=== PATIENT | female | born 1970 | race Caucasian/White ===

== ENCOUNTER 2022-10-09 09:54 | Observation (INO) ==
[2022-10-09] MEDS ORDERED: SODIUM CHLORIDE 0.9% 1000ML 1,000 ML IV ONE (10:49)
[2022-10-09] MEDS ORDERED: ONDANSETRON INJ 2 MG/ML 2 ML VIAL IV STA ×2 (10:50→12:37)
--- NOTE | 2022-10-09 10:52 | XRay Report ---
XR chest 1V portable CLINICAL HISTORY: Fall. COMPARISON STUDY: No previous studies for comparison. FINDINGS: Lung volumes are normal. Lungs are clear. There is no pneumothorax or pleural effusion. Car diac size is normal. Mediastinal contours are normal. There is no evidence for pulmonary edema. IMPRESSION: No acute cardiopulmonary findings. ACT 112: Negative or not required by law. Electronically signed by: Tommy Rodriguez M.D. 10/09/2022 10:51 AM
[2022-10-09 11:02] LABS: Basophils # (auto) 0.06 K/uL (0-0.2); Basophils % (auto) 0.5 %; Eosinophils # (auto) 0.01 K/uL (0-0.50); Eosinophils % (auto) 0.1 %; Hemoglobin 13.5 g/dl (12.0-16.0); Immature Granulocytes # (auto) 0.04 K/uL (0.01-0.20); Immature Granulocytes % (auto) 0.3 %; Lymphocytes # (auto) 1.53 K/uL (1.2-3.4); Lymphocytes % (auto) 12.5 %; Mean Corpuscular Hemoglobin 29.7 pg (25.0-34.0); Mean Corpuscular Hgb Conc 32.9 g/dL (32.0-36.0); Mean Corpuscular Volume 90.1 fL (80.0-100.0); Monocytes # (auto) 0.43 K/uL (0.11-0.59); Monocytes % (auto) 3.5 %; Neutrophils # (auto) 10.21 K/uL (1.40-6.50); Neutrophils % (auto) 83.1 %; Platelet Count 247 K/uL (130-400); RDW Standard Deviation 46.5 fL (36.4-46.3); Red Blood Count 4.55 M/uL (4.20-5.40); White Blood Count 12.28 K/ul (4.8-10.8)
[2022-10-09 11:05] LABS: Albumin Globulin Ratio 1.7 (0.9-2); Albumin Level 4.3 gm/dl (3.4-5.0); BUN Creatinine Ratio 28.2 (10-20); Bilirubin,Total 0.6 mg/dl (0.2-1.0); Creatinine Clr Calc Pharmacy 99.4 ml/min; Est GFR (African American) 111.9 ml/min; Est GFR (Non-African American) 96.6 ml/min; Globulin 2.6 gm/dl (2.5-4.0); Potassium 3.6 mmol/L (3.5-5.1); Total Protein 6.9 gm/dl (6.0-8.3)
[2022-10-09 11:07] LABS: Pregnancy Test, Serum Negative (Negative)
[2022-10-09 11:11] LABS: Troponin I High Sensitivity 8.7 pg/ml (0-14)
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
--- NOTE | 2022-10-09 11:26 | CT Scan Report ---
CT OF THE HEAD WITHOUT CONTRAST CLINICAL HISTORY: fall, LOC COMPARISON STUDY: No previous studies for comparison. CT DOSE: 2638.62 mGy.cm TECHNIQUE: Helical axial images of the head were obtained without IV contrast. Automated exposure con trol was utilized for the study. A dose lowering technique was utilized adhering to the principles o f ALARA. FINDINGS: No acute intracranial hemorrhage, midline shift or mass effect is present. Subtle white mat ter hypodensities may reflect small vessel disease. The ventricular system is unremarkable. The basal cisterns are patent. No extra-axial collections are present. There are no findings to suggest acute dural sinus thrombosis or acute territorial infarct. No significant calvarial abnormalities are prese nt. Visualized portions of the sinuses and mastoid air cells are clear. IMPRESSION: 1. No acute intracranial findings. 2. No acute calvarial fracture. ACT 112: Negative or not required by law. Electronically signed by: Tommy Rodriguez M.D. 10/09/2022 11:25 AM
--- NOTE | 2022-10-09 11:31 | CT Scan Report ---
CT cervical spine wo con CLINICAL HISTORY: 52 years-old Female with fall, LOC. Acute head and neck injury status post fall COMPARISON: Head CT of same day TECHNIQUE: Multiple axial CT images of the cervical spine were obtained without contrast. A dose low ering technique was utilized adhering to the principles of ALARA. FINDINGS: Moderate degeneration at the C1-C2 junction. Mild to moderate intervertebral disc space colin rowing and spondylotic spurring and circumferential disc osteophyte complex at the C5-C6. Mild multil evel uncovertebral hypertrophy and facet arthrosis. No acute fracture, subluxation or endplate erosio n. The cervical soft tissues appear unremarkable. The visualized lung apices appear clear. IMPRESSION: No acute cervical spine fracture or subluxation identified. ACT 112: Negative or not required by law. The above report was generated using voice recognition software. It may contain grammatical, syntax o r spelling errors. Electronically signed by: Angel Hassan M.D. 10/09/2022 11:29 AM
--- NOTE | 2022-10-09 11:32 | CT Scan Report ---
CT OF THE ABDOMEN AND PELVIS WITHOUT CONTRAST CLINICAL HISTORY: nausea, ?fall COMPARISON STUDY: No previous studies for comparison. TECHNIQUE: Axial images of the abdomen and pelvis were obtained without IV contrast. Images were revi ewed in the axial, sagittal, and coronal planes. Automated exposure control was utilized for the anjel dy. A dose lowering technique was utilized adhering to the principles of ALARA. FINDINGS: Lung bases are unremarkable. No pneumatosis, free air or portal venous gas is present. No h emoperitoneum is present. Evaluation of the abdomen and pelvis is suboptimal on this unenhanced exam. Liver, spleen, adrenal glands, kidneys and pancreas are normal. There is no biliary or pancreatic du ctal dilatation. There is a gallstone within the gallbladder. There is no evidence for acute cholecys titis. The appendix is normal. There is no evidence for a bowel obstruction. Moderate amount of stool within the colon is noted. There is no lymphadenopathy. A 2.2 cm hypodense right adnexal lesion is n oted. This has peripheral calcifications. No acute fractures are identified within the visualized ske letal structures. IMPRESSION: 1. No acute traumatic findings within the abdomen or pelvis on unenhanced exam. 2. 2.2 cm hypodense right adnexal lesion with peripheral calcifications. Although not highly suspicio us, this is indeterminate. This likely reflects a right ovarian cystic lesion. Nonemergent pelvic ult rasound is recommended. 3. Cholelithiasis. ACT 112: Negative or not required by law. Electronically signed by: Tommy Rodriguez M.D. 10/09/2022 11:31 AM
[2022-10-09] MEDS ORDERED: ACETAMINOPHEN 325 MG TAB PO STA (12:37)
--- NOTE | 2022-10-09 13:59 | History & Physical Report ---
Date of Service October 09, 2022 Assessment & Plan (1) Altered mental status: (2) Amnesia: (3) Headache: Plan: Patient is 52-year-old female without significant known past medical history who presented to ER today after being found on floor this morning. Reported heard banging sounds and then pt found on floor. Has ecchymosis chin. Patient unable to remember events. Alert to person and place DDX: Seizure, postictal state, syncope, substance use In ER vital stable. CPK WNL, troponin WNL CT head: No acute intracranial abnormality CT C-spine: No acute fracture UA pending Drug screen pending Seizure precautions MRI brain EEG Neurology consult CBC, BMP in a.m. (4) Leukocytosis: Plan: WBC: 12 UA pending Blood cultures pending No reported fever, chills, cough, abdominal pain, urinary symptoms May be secondary to event today. Repeat CBC in a.m. (5) Elevated glucose level: Plan: Random glucose: 173 Obtain A1c in a.m. (6) Elevated blood pressure reading: Plan: In ER BP initially elevated however throughout ER course improved Monitor BP (7) Ovarian cyst: Plan: CT abdomen and pelvis: 2.2 cm hypodense right adnexal lesion with peripheral calcifications. Although not highly suspicious, this is indeterminate. This likely reflects a right ovarian cystic lesion. Nonemergent pelvic ultrasound is recommended. Obtain pelvic ultrasound DVT Prophylaxis SCDs Full Code as per discussion with pt Does not follow with a physician for routine care Pt was seen and care coordinated with Dr Varela. See addendum I spent a total of 76 minutes reviewing notes, outpatient records, labs, medication, coordinating, documenting and providing care for this patient excluding time spent in the performance of separately billed services. History of Present Illness Chief Complaint: AMS Primary Care Provider: NO PCP Patient is 52-year-old female without significant known past medical history who presented to ER today after being found on floor this morning. History obtained from patient and per EMS report. Patient states lives with friend and roommate. EMS reported that patient's roommate had reported she heard banging type sounds and then checked on patient. It is reported patient was found lying on bedroom floor. Patient states she remembers waking up in bed with EMS there. Patient states does not remember anything else. She does not remember yesterday. She is currently unsure of the day. She states she remembers her daughter telling it was Wednesday today while she was here in the ER. Does not know the month or year. States it is spring going into summer season. She knows the president and is oriented to self and place. She does not think that she has had any recent illness, fever or chills, vomiting, diarrhea or abdominal pain. States here in ER she has a frontal headache in her "whole body feels sore". States when first arrived to ER she had GAMBOA, nausea and vomited once. Patient has not seen a provider for over 20 years, so is unsure of any underlying medical problems. She denies any known seizure history. Patient does state in the fall of 2021 she woke up in the middle of night when she had fallen out of bed and was initially a little confused. She does not have drivers license and does not drive. Patient reports smokes marijuana daily. Denies other illicit drug use. Denies [id number]-[id number] supplements or medications. Not currently on any prescription medication. ER provider stated patient will need different housing consideration as it was reported by patient's daughter that her roommate is not wanting patient to return. Denies known fever/chills, dizziness, syncope, vision changes, speech changes, neck pain, CP, SOB,palpitations, cough, sore throat, otalgia, rhinorrhea, abdominal pain, paresthesias, extremity edema, rashes, urinary symptoms. Allergies Allergy/AdvReac Type Severity Reaction Status Date / Time No Known Allergies Allergy Verified 10/09/22 14:05 [id number] Allergy Unknown Unknown Uncoded 10/09/22 14:05 N Allergy Unknown Unknown Uncoded 10/09/22 14:05 Home Medications Medication Instructions Recorded Confirmed Type albuterol sulfate 90 mcg/actuation 2 puff inhalation 6XD PRN sob 10/09/22 10/09/22 History aerosol inhaler Past Med/Surg History Family History Other Breast cancer Diabetes Hypertension Stroke Social History Smoking Status: Former smoker Smoking End Date: Quit 8 years ago. Smoked 1ppd x 30 years; Hx Alcohol Use: No Hx Substance Use: Yes Non-Prescribed Medications: Marijuana Preferred Language: Greenlandic Communication Ability: Effective Bulwark Carpenter Required: No Beliefs That Will Affect Care: None Current Living Situation: Other Current Living Situation Comment: staying with a friend. Other Information That Helps Us Care for You: No Feels Safe at Home: Yes Safety Concerns: Feels Safe At This Time Assistive Devices: Denture - Upper and Glasses Review of Systems Review of Systems: All systems reviewed & are unremarkable except as noted in HPI & below Physical Exam Physical Exam: General: no distress, WDWN Head: normocephalic, atraumatic Eyes: PERRL, EOM's intact, conjunctiva non-injected, anicteric ENT: normal inspection external ears, nose, mucous membranes moist Face: +ecchymosis right chin, no ecchymosis orbits or maxillary region. Able to fully open and close jaw without pain or difficulty. no periorbital or maxillary tenderness to palpation Neck: supple, trachea midline Lungs: clear, no respiratory distress, coarse breath sounds without rales CV: RRR, no murmur, no pretibial edema Abd: normal BS, soft, non-tender Ext: no cyanosis, no calf tenderness Neuro: Alert, oriented to person, place. Knows spring/summer unsure of month or year, knows president, no focal deficits noted, normal affect Skin: warm, dry Results & Data Results & Data Vital Signs (Past 12 Hours) Vital Signs Temp Pulse Resp BP Pulse Ox O2 Del Method 10/09/22 13:00 85 19 144/90 H 97 10/09/22 12:30 75 17 155/109 H 97 10/09/22 12:00 71 19 152/100 H 95 10/09/22 11:30 74 26 H 149/91 H 99 10/09/22 11:00 77 16 174/111 H 98 10/09/22 10:30 79 20 167/117 H 98 10/09/22 09:54 36.8 C 84 19 166/107 H 100 Room Air 10/09/22 10:05 84 Laboratory Results Short CBC 10/09/22 Range/Units 10:10 WBC 12.28 H (4.8-10.8) K/ul Hgb 13.5 (12.0-16.0) g/dl Hct 41.0 (37.0-47.0) % Plt Count 247 (130-400) K/uL BMP 10/09/22 10:10 Sodium 139 Potassium 3.6 Chloride 106 Carbon Dioxide 24 BUN 20 Creatinine 0.71 Glucose 173 H Calcium 9.0 Cardiac Enzymes 10/09/22 Range/Units 11:21 Total Creatine Kinase 152 (26-192) U/L Liver Function 10/09/22 Range/Units 10:10 Total Bilirubin 0.6 (0.2-1.0) mg/dl AST 14 (13-39) U/L ALT 8 (7-52) U/L Alkaline Phosphatase 59 (34-104) U/L Albumin 4.3 (3.4-5.0) gm/dl Urine 10/09/22 Range/Units 13:54 Urine Color Yellow Urine Appearance Clear (Clear) Urine pH 7.0 (4.5-7.5) Ur Specific [place] 1.023 (1.000-1.030) Urine Protein Trace H (Negative) Urine Glucose (UA) Negative (Negative) Diagnostic Findings Chest X-Ray 10/09/22 10:33 XR chest 1V portable CLINICAL HISTORY: Fall. COMPARISON STUDY: No previous studies for comparison. FINDINGS: Lung volumes are normal. Lungs are clear. There is no pneumothorax or pleural effusion. Cardiac size is normal. Mediastinal contours are normal. There is no evidence for pulmonary edema. IMPRESSION: No acute cardiopulmonary findings. ACT 112: Negative or not required by law. Electronically signed by: Tommy Rodriguez M.D. 10/09/2022 10:[address] 10/09/22 10:41 CT OF THE HEAD WITHOUT CONTRAST CLINICAL HISTORY: fall, LOC COMPARISON STUDY: No previous studies for comparison. CT DOSE: 2638.62 mGy.cm TECHNIQUE: Helical axial images of the head were obtained without IV contrast. Automated exposure control was utilized for the study. A dose lowering technique was utilized adhering to the principles of ALARA. FINDINGS: No acute intracranial hemorrhage, midline shift or mass effect is present. Subtle white matter hypodensities may reflect small vessel disease. The ventricular system is unremarkable. The basal cisterns are patent. No extra- axial collections are present. There are no findings to suggest acute dural sinus thrombosis or acute territorial infarct. No significant calvarial abnormalities are present. Visualized portions of the sinuses and mastoid air cells are clear. IMPRESSION: 1. No acute intracranial findings. 2. No acute calvarial fracture. ACT 112: Negative or not required by law. Electronically signed by: Tommy Rodriguez M.D. 10/09/2022 11:25 AM Abdomen/Pelvis CT 10/09/22 10:48 CT OF THE ABDOMEN AND PELVIS WITHOUT CONTRAST CLINICAL HISTORY: nausea, ?fall COMPARISON STUDY: No previous studies for comparison. TECHNIQUE: Axial images of the abdomen and pelvis were obtained without IV contrast. Images were reviewed in the axial, sagittal, and coronal planes. Automated exposure control was utilized for the study. A dose lowering technique was utilized adhering to the principles of ALARA. FINDINGS: Lung bases are unremarkable. No pneumatosis, free air or portal venous gas is present. No hemoperitoneum is present. Evaluation of the abdomen and pelvis is suboptimal on this unenhanced exam. Liver, spleen, adrenal glands, kidneys and pancreas are normal. There is no biliary or pancreatic ductal dilatation. There is a gallstone within the gallbladder. There is no evidence for acute cholecystitis. The appendix is normal. There is no evidence for a bowel obstruction. Moderate amount of stool within the colon is noted. There is no lymphadenopathy. A 2.2 cm hypodense right adnexal lesion is noted. This has peripheral calcifications. No acute fractures are identified within the visualized skeletal structures. IMPRESSION: 1. No acute traumatic findings within the abdomen or pelvis on unenhanced exam. 2. 2.2 cm hypodense right adnexal lesion with peripheral calcifications. Although not highly suspicious, this is indeterminate. This likely reflects a right ovarian cystic lesion. Nonemergent pelvic ultrasound is recommended. 3. Cholelithiasis. ACT 112: Negative or not required by law. Electronically signed by: Tommy Rodriguez M.D. 10/09/2022 11:[address] 10/09/22 10:48 CT cervical spine wo con CLINICAL HISTORY: 52 years-old Female with fall, LOC. Acute head and neck injury status post fall COMPARISON: Head CT of same day TECHNIQUE: Multiple axial CT images of the cervical spine were obtained without contrast. A dose lowering technique was utilized adhering to the principles of ALARA. FINDINGS: Moderate degeneration at the C1-C2 junction. Mild to moderate intervertebral disc space narrowing and spondylotic spurring and circumferential disc osteophyte complex at the C5-C6. Mild multilevel uncovertebral hypertrophy and facet arthrosis. No acute fracture, subluxation or endplate erosion. The cervical soft tissues appear unremarkable. The visualized lung apices appear clear. IMPRESSION: No acute cervical spine fracture or subluxation identified. ACT 112: Negative or not required by law. The above report was generated using voice recognition software. It may contain grammatical, syntax or spelling errors. Electronically signed by: Angel Hassan M.D. 10/09/2022 11:29 AM Brain MRI 10/09/22 14:01 MR brain seizure wo/w con HISTORY: 52 years-old Female AMS ?possible seizure acutely altered mental status with seizure-like activity COMPARISON: Head CT 10/09/2022 TECHNIQUE: Multiplanar multisequence MRI of the brain was obtained both with and without the use of IV contrast. FINDINGS: No restricted diffusion. Midline structures are unremarkable. Degenerative changes of the imaged cervical spine. No acute intracranial hemorrhage, midline shift, abnormal extra-axial collection, hydrocephalus or intracranial mass. Mild scattered T2/FLAIR hyperintense foci throughout the white matter. The brain volume is within normal limits. Normal appearance of the mesial temporal lobes. Cerebral venous sinuses and major arterial flow voids appear patent. Minimal mucosal thickening of the ethmoid air cells. Mastoid air cells are clear. Skull, orbits and soft tissues are unremarkable. No abnormal enhancement. IMPRESSION: 1. No acute intracranial abnormality. No acute or subacute infarct. 2. No abnormal enhancement. ACT 112: Negative or not required by law. The above report was generated using voice recognition software. It may contain grammatical, syntax or spelling errors. Electronically signed by: Angel Hassan M.D. 10/09/2022 5:32 PM Supervising Physician Co-Signing Physician Notes Patient seen and examined independently. Discussed with above provider. 52-year-old female with no known past medical history brought to the ED after she was found in her apartment with bruising in right side of her face and right upper lip. Patient has no recollection of the events. No Previous such episode. Will obtain MRI brain seizure protocol. Obtain EEG. Neurology consult Seizure precautions. (3) Headache Headache chronicity pattern: acute headache Headache type: unspecified Intractability: intractable Qualified Code(s): R51.9 - Headache, unspecified (7) Ovarian cyst Laterality: right Qualified Code(s): N83.201 - Unspecified ovarian cyst, right side
[2022-10-09 14:30] LABS: Appearance Urine Clear (Clear); Bacteria Urine Automated Negative (Negative); Bilirubin Urine Negative (Negative); Blood Urine Negative (Negative); Color Urine Yellow; Epithelial Cell Urine Auto >30 /lpf (0-5); Glucose Urine UA Negative (Negative); Ketones Urine Trace (Negative); Leukocyte Esterase Urine 1+ (Negative); Nitrite Urine Negative (Negative); Protein Urine Trace (Negative); RBC Urine Automated 0-4 /hpf (0-4); Specific Gravity Urine 1.023 (1.000-1.030); Urobilinogen Urine Negative (Negative)
[2022-10-09 14:46] LABS: Acetaminophen < 3 ug/ml (10-30); Salicylate < 3.0 mg/dl (3.0-30)
[2022-10-09 14:53] LABS: Amphetamines+Metham, Urine Neg (Neg); Barbiturates, Urine Neg (Neg); Benzodiazepine, Urine Neg (Neg); Cocaine, Urine Neg (Neg); MDMA (Ecstacy), Urine Neg (Neg); Methadone, Urine Neg (Neg); Opiate, Urine Neg (Neg); Phencyclidine, Urine Neg (Neg)
--- NOTE | 2022-10-09 15:31 | Electrocardiogram Report ---
Test Reason : Blood Pressure : / mmHG Vent. Rate : 078 BPM Atrial Rate : 078 BPM P-R Int : 136 ms QRS Dur : 090 ms QT Int : 392 ms P-R-T Axes : 067 058 057 degrees QTc Int : 446 ms Normal sinus rhythm Normal ECG No previous ECGs available Confirmed by Benja Wang ([id number]) on 10/09/2022 3:31:24 PM Referred By: Confirmed By:Miguel Wang
[2022-10-09] MEDS ORDERED: GADOBUTROL 65ML VIAL IV ONE (17:07)
--- NOTE | 2022-10-09 17:33 | Magnetic Resonance Report ---
MR brain seizure wo/w con HISTORY: 52 years-old Female AMS ?possible seizure acutely altered mental status with seizure-like a ctivity COMPARISON: Head CT 10/09/2022 TECHNIQUE: Multiplanar multisequence MRI of the brain was obtained both with and without the use of I V contrast. FINDINGS: No restricted diffusion. Midline structures are unremarkable. Degenerative changes of the imaged cerv ical spine. No acute intracranial hemorrhage, midline shift, abnormal extra-axial collection, hydroce phalus or intracranial mass. Mild scattered T2/FLAIR hyperintense foci throughout the white matter. T he brain volume is within normal limits. Normal appearance of the mesial temporal lobes. Cerebral venous sinuses and major arterial flow voids appear patent. Minimal mucosal thickening of th e ethmoid air cells. Mastoid air cells are clear. Skull, orbits and soft tissues are unremarkable. No abnormal enhancement. IMPRESSION: 1. No acute intracranial abnormality. No acute or subacute infarct. 2. No abnormal enhancement. ACT 112: Negative or not required by law. The above report was generated using voice recognition software. It may contain grammatical, syntax o r spelling errors. Electronically signed by: Angel Hassan M.D. 10/09/2022 5:32 PM
[2022-10-09] MEDS ORDERED: ACETAMINOPHEN 325 MG TAB PO PRN (17:39)
[2022-10-09] MEDS ORDERED: ONDANSETRON INJ 2 MG/ML 2 ML VIAL IV PRN (17:39)
[2022-10-09] MEDS ORDERED: POLYETHYLENE (MIRALAX) 17 GM PACK PO PRN (17:39)
[2022-10-09] MEDS ORDERED: LORazepam 2 MG/1 ML VIAL IV PRN (20:34)
[2022-10-09] MEDS ORDERED: KETOROLAC TROMETHAMINE 15 MG/ML VIAL IV ONE (21:06)
[2022-10-10 07:36] LABS: Basophils # (auto) 0.04 K/uL (0-0.2); Basophils % (auto) 0.4 %; Eosinophils # (auto) 0.06 K/uL (0-0.50); Eosinophils % (auto) 0.7 %; Hematocrit (blood only) 37.4 % (37.0-47.0); Hemoglobin 12.5 g/dl (12.0-16.0); Immature Granulocytes # (auto) 0.03 K/uL (0.01-0.20); Immature Granulocytes % (auto) 0.3 %; Lymphocytes # (auto) 2.52 K/uL (1.2-3.4); Lymphocytes % (auto) 27.8 %; Mean Corpuscular Hemoglobin 29.7 pg (25.0-34.0); Mean Corpuscular Hgb Conc 33.4 g/dL (32.0-36.0); Mean Corpuscular Volume 88.8 fL (80.0-100.0); Mean Platelet Volume 10.8 fL (9.4-12.4); Monocytes # (auto) 0.47 K/uL (0.11-0.59); Monocytes % (auto) 5.2 %; Neutrophils # (auto) 5.94 K/uL (1.40-6.50); Neutrophils % (auto) 65.6 %; Platelet Count 210 K/uL (130-400); RDW Coefficient of Variation 14.1 % (11.5-14.5); RDW Standard Deviation 45.5 fL (36.4-46.3); Red Blood Count 4.21 M/uL (4.20-5.40); White Blood Count 9.06 K/ul (4.8-10.8)
[2022-10-10 07:37] LABS: Estimated Average Glucose 108 mg/dl; Hemoglobin A1C 5.4 % (4.5-5.6)
[2022-10-10 07:54] LABS: BUN Creatinine Ratio 31.3 (10-20); Calcium 8.8 mg/dl (8.6-10.3); Creatinine Clr Calc Pharmacy 105.2 ml/min; Est GFR (African American) 115.5 ml/min; Est GFR (Non-African American) 99.7 ml/min; Potassium 3.6 mmol/L (3.5-5.1)
--- NOTE | 2022-10-10 11:19 | Ultrasound Report ---
PELVIC ULTRASOUND, TRANSABDOMINAL AND TRANSVAGINAL HISTORY: Follow-up right ovarian lesion. Abnormal abdomen and pelvis CT. COMPARISON: Abdomen and pelvis CT 10/09/2022. FINDINGS: Uterus: 7.3 x 3.8 x 5.2 cm. No uterine masses. Endometrial stripe: 4 mm in thickness. There are few tiny endometrial cysts noted. Right ovary: Normal in size and demonstrates normal color flow. There is redemonstration of the 2.5 x 2.2 x 1.6 cm right ovarian cyst. This contains a small amount of peripheral calcification. Left ovary: Normal in size and demonstrates normal color flow. Miscellaneous:No pelvic free fluid. IMPRESSION: 1. Confirmation of the 2.5 x 2.2 x 1.6 cm right ovarian cyst which contains a small amount of periphe ral calcification. 3 month pelvic ultrasound follow-up can be performed to ensure stability. 2. Normal endometrial thickness. 3. Normal left ovary. ACT 112: Negative or not required by law. Electronically signed by: Victor M Garrison M.D. 10/10/2022 11:17 AM
--- NOTE | 2022-10-10 11:21 | Neurology Consultation ---
Date of Consultation October 10, 2022 Assessment & Plan (1) New onset seizure: A 52 year old Female with suspected new onset seizure. MRI brain negative for acute stroke or mass. Recommend Keppra 500 mg BID. Will arrange routine EEG as outpatient. Patient is not driving. Found to have a low B12. Recommend stating Vit B12 tablet 1000 mcg daily. Outpatient neurology follow up in 3-4 months. History of Present Illness Reason for Consultation: Seizure Attending Physician: Ashok Johnson MD History of Present Illness A 52 year female with no PMH admitted with LOC. Patient was found on floor by roomate. Episode occur during the evening. Patient reports she went to bed and then woke to find EMS. Patient states does not remember anything else. She reports one similar episode in the fall 2021. Denies any history of seizure or childhood epilepsy. No family history of seizure. Denies EtOH. No new medications or recent illnesses. Patient does state in the fall of 2021 she woke up in the middle of night when she had fallen out of bed and was initially a little confused. She does not have drivers license and does not drive. Patient reports She smokes marijuana daily. Denies other illicit drug use. Denies [id number]-[id number] supplements or medications. Not currently on any prescription medication. Allergies Allergy/AdvReac Type Severity Reaction Status Date / Time No Known Allergies Allergy Verified 10/09/22 14:05 [id number] Allergy Unknown Unknown Uncoded 10/09/22 14:05 N Allergy Unknown Unknown Uncoded 10/09/22 14:05 Home Medications Medication Instructions Recorded Confirmed Type albuterol sulfate 90 mcg/actuation 2 puff inhalation 6XD PRN sob 10/09/22 10/09/22 History aerosol inhaler cyanocobalamin (vitamin B-12) 500 1,000 mcg PO QAM #60 tabs 10/10/22 Rx mcg tablet levetiracetam 500 mg tablet 500 mg PO BID #60 tabs 10/10/22 Rx (Keppra) Patient History Family History Other Breast cancer Diabetes Hypertension Stroke Social History Smoking Status: Former smoker Smoking End Date: Quit 8 years ago. Smoked 1ppd x 30 years; Hx Alcohol Use: No Hx Substance Use: Yes Non-Prescribed Medications: Marijuana Preferred Language: Chinese Communication Ability: Effective Music Engraver Required: No Beliefs That Will Affect Care: None Current Living Situation: Other Current Living Situation Comment: staying with a friend. Other Information That Helps Us Care for You: No Feels Safe at Home: Yes Safety Concerns: Feels Safe At This Time Assistive Devices: Denture - Upper and Glasses Physical Exam Physical Exam: Patient was seen and examine. Awake and alert. No distress. Right bruise on her chin. Tongue midline no abrasion. Sensation intact. No tremor. No childress SIgn. No ataxia. No dysmetria. Gait is physiologic. Results & Data Vital Signs (Past 12 Hours) Vital Signs Temp Pulse Pulse Resp BP Pulse Ox O2 Del Method 10/10/22 07:57 92 H 10/10/22 07:20 36.8 C 66 16 129/71 97 Room Air 10/10/22 04:36 66 10/10/22 03:00 36.9 C 62 18 123/76 96 Room Air Laboratory Results Vit B12 Level Low Diagnostic Findings MRI brain : FINDINGS: No restricted diffusion. Midline structures are unremarkable. Degenerative changes of the imaged cervical spine. No acute intracranial hemorrhage, midline shift, abnormal extra-axial collection, hydrocephalus or intracranial mass. Mild scattered T2/FLAIR hyperintense foci throughout the white matter. The brain volume is within normal limits. Normal appearance of the mesial temporal lobes. Cerebral venous sinuses and major arterial flow voids appear patent. Minimal mucosal thickening of the ethmoid air cells. Mastoid air cells are clear. Skull, orbits and soft tissues are unremarkable. No abnormal enhancement. IMPRESSION: 1. No acute intracranial abnormality. No acute or subacute infarct. 2. No abnormal enhancement. EKG: NSR
--- NOTE | 2022-10-10 13:59 | Hospitalist Progress Note ---
Date of Service October 10, 2022 Assessment & Plan (1) Altered mental status: (2) Amnesia: (3) Headache: Plan: Patient is 52-year-old female without significant known past medical history who presented to ER today after being found on floor this morning. Reported heard banging sounds and then pt found on floor. Has ecchymosis chin. Patient unable to remember events. Altered mental status Likely secondary to seizure ? Marijuana contributing as well -MRI Brain:No acute intracranial abnormality. No acute or subacute infarct. No abnormal enhancement. --Neck CT:No acute cervical spine fracture or subluxation identified. 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 Although not highly suspicious, this is indeterminate. This likely reflects a right ovarian cystic lesion. Nonemergent pelvic ultrasound is recommended. --Pelvic ultrasound: Confirmation of the 2.5 x 2.2 x 1.6 cm right ovarian cyst which contains a small amount of peripheral calcification. 3 month pelvic ultrasound follow-up can be performed to ensure stability. Normal endometrial thickness. Normal left ovary. -- Advised to follow-up with [facility] as outpatient DVT Px SCDs Code Status Full Code Admission and Anticipated Discharge Date Admission Date: October 09, 2022 Subjective Patient is seen and examined at bedside States feeling well today Offers no new complaints Denies any chest pain, shortness, dizziness, nausea, abdominal pain, focal weakness or numbness No events overnight Review of Systems Review of Systems: All systems reviewed & are unremarkable except as noted in Subjective Physical Exam Physical Exam: Physical Exam: Vitals signs as noted above General Appearance:Moderately built and nourished, no apparent distress Head: normocephalic, Atraumatic Face: R chin Ecchymosis Eyes: normal inspection, EOMI Neck: supple, Trachea midline Respiratory/Chest: Normal breath sounds, CTA, No accessory muscle use Cardiovascular: S1, S2, No murmur Abdomen/GI:Soft, Non tender, Bowel sounds present Extremities/Musculoskeletal:normal inspection, no edema Neurologic/Psych:AAOX3, grossly no focal neurological deficits Skin: normal color, warm Results & Data Results & Data Vital Signs (Past 12 Hours) Vital Signs Temp Pulse Pulse Resp BP BP Pulse Ox 10/10/22 11:36 36.6 C 56 L 18 130/78 98 10/10/22 07:57 92 H 10/10/22 07:20 36.8 C 66 16 129/71 97 10/10/22 04:36 66 10/10/22 03:00 36.9 C 62 18 123/76 96 O2 Del Method 10/10/22 11:36 Room Air 10/10/22 07:57 10/10/22 07:20 Room Air 10/10/22 04:36 10/10/22 03:00 Room Air Laboratory Results Short CBC 10/10/22 Range/Units 06:59 WBC 9.06 (4.8-10.8) K/ul Hgb 12.5 (12.0-16.0) g/dl Hct 37.4 (37.0-47.0) % Plt Count 210 (130-400) K/uL BMP 10/10/22 06:59 Sodium 142 Potassium 3.6 Chloride 110 H Carbon Dioxide 27 BUN 21 Creatinine 0.67 Glucose 95 Calcium 8.8 Urine 10/09/22 Range/Units 13:54 Urine Color Yellow Urine Appearance Clear (Clear) Urine pH 7.0 (4.5-7.5) Ur Specific [place] 1.023 (1.000-1.030) Urine Protein Trace H (Negative) Urine Glucose (UA) Negative (Negative) (3) Headache Headache chronicity pattern: acute headache Headache type: unspecified Intractability: intractable Qualified Code(s): R51.9 - Headache, unspecified (7) Ovarian cyst Laterality: right Qualified Code(s): N83.201 - Unspecified ovarian cyst, right side
[2022-10-10] MEDS ORDERED: levETIRAcetam 500 MG TAB PO SCH (14:00)
[2022-10-10] MEDS ORDERED: CYANOCOBALAMIN (B-12) 500 MCG TABLET PO SCH (14:05)
--- NOTE | 2022-10-10 14:13 | Discharge Summary ---
Date of Service October 10, 2022 Admission HPI Per Admitting Provider Patient is 52-year-old female without significant known past medical history who presented to ER today after being found on floor this morning. History obtained from patient and per EMS report. Patient states lives with friend and roommate. EMS reported that patient's roommate had reported she heard banging type sounds and then checked on patient. It is reported patient was found lying on bedroom floor. Patient states she remembers waking up in bed with EMS there. Patient states does not remember anything else. She does not remember yesterday. She is currently unsure of the day. She states she remembers her daughter telling it was Wednesday today while she was here in the ER. Does not know the month or year. States it is spring going into summer season. She knows the president and is oriented to self and place. She does not think that she has had any recent illness, fever or chills, vomiting, diarrhea or abdominal pain. States here in ER she has a frontal headache in her "whole body feels sore". States when first arrived to ER she had GAMBOA, nausea and vomited once. Patient has not seen a provider for over 20 years, so is unsure of any underlying medical problems. She denies any known seizure history. Patient does state in the fall of 2021 she woke up in the middle of night when she had fallen out of bed and was initially a little confused. She does not have drivers license and does not driv e. Patient reports smokes marijuana daily. Denies other illicit drug use. Denies [id number] supplements or medications. Not currently on any prescription medication. ER provider stated patient will need different housing consideration as it was reported by patient's daughter that her roommate is not wanting patient to return. Denies known fever/chills, dizziness, syncope, vision changes, speech changes, neck pain, CP, SOB,palpitations, cough, sore throat, otalgia, rhinorrhea, abdominal pain, paresthesias, extremity edema, rashes, urinary symptoms. Admission Exam Per Admitting Provider General: no distress, WDWN Head: normocephalic, atraumatic Eyes: PERRL, EOM's intact, conjunctiva non-injected, anicteric ENT: normal inspection external ears, nose, mucous membranes moist Face: +ecchymosis right chin, no ecchymosis orbits or maxillary region. Able to fully open and close jaw without pain or difficulty. no periorbital or maxillary tenderness to palpation Neck: supple, trachea midline Lungs: clear, no respiratory distress, coarse breath sounds without rales CV: RRR, no murmur, no pretibial edema Abd: normal BS, soft, non-tender Ext: no cyanosis, no calf tenderness Neuro: Alert, oriented to person, place. Knows spring/summer unsure of month or year, knows president, no focal deficits noted, normal affect Skin: warm, dry Principal Diagnosis Altered mental status Possible seizure Right ovarian cyst Vitamin B12 deficiency Discharge Data Allergies Allergy/AdvReac Type Severity Reaction Status Date / Time No Known Allergies Allergy Verified 10/09/22 14:05 [id number] Allergy Unknown Unknown Uncoded 10/09/22 14:05 N Allergy Unknown Unknown Uncoded 10/09/22 14:05 Consultations 10/09/22 13:12 ED Decision to Admit Stat 10/09/22 14:03 Consult Neurology Routine Procedures Performed Laboratory Results WBC 9.06 K/ul (4.8-10.8) 10/10/22 06:59 RBC 4.21 M/uL (4.20-5.40) 10/10/22 06:59 Hgb 12.5 g/dl (12.0-16.0) 10/10/22 06:59 Hct 37.4 % (37.0-47.0) 10/10/22 06:59 MCV 88.8 fL (80.0-100.0) 10/10/22 06:59 MCH 29.7 pg (25.0-34.0) 10/10/22 06:59 MCHC 33.4 g/dL (32.0-36.0) 10/10/22 06:59 RDW Std Deviation 45.5 fL (36.4-46.3) 10/10/22 06:59 RDW Coeff of Juliana 14.1 % (11.5-14.5) 10/10/22 06:59 Plt Count 210 K/uL (130-400) 10/10/22 06:59 MPV 10.8 fL (9.4-12.4) 10/10/22 06:59 Immature Gran % (Auto) 0.3 % 10/10/22 06:59 Neut % (Auto) 65.6 % 10/10/22 06:59 Lymph % (Auto) 27.8 % 10/10/22 06:59 [place] % (Auto) 5.2 % 10/10/22 06:59 Eos % (Auto) 0.7 % 10/10/22 06:59 Baso % (Auto) 0.4 % 10/10/22 06:59 Neut # (Auto) 5.94 K/uL (1.40-6.50) 10/10/22 06:59 Lymph # (Auto) 2.52 K/uL (1.2-3.4) 10/10/22 06:59 [place] # (Auto) 0.47 K/uL (0.11-0.59) 10/10/22 06:59 Eos # (Auto) 0.06 K/uL (0-0.50) 10/10/22 06:59 Baso # (Auto) 0.04 K/uL (0-0.2) 10/10/22 06:59 Immature Gran # (Auto) 0.03 K/uL (0.01-0.20) 10/10/22 06:59 Sodium 142 mmol/L (136-145) 10/10/22 06:59 Potassium 3.6 mmol/L (3.5-5.1) 10/10/22 06:59 Chloride 110 mmol/L (98-107) H 10/10/22 06:59 Carbon Dioxide 27 mmol/L (21-32) 10/10/22 06:59 Anion Gap 5 (3-11) 10/10/22 06:59 BUN 21 mg/dl (6-23) 10/10/22 06:59 Creatinine 0.67 mg/dl (0.6-1.2) 10/10/22 06:59 Est Cr Clr Drug Dosing 105.2 ml/min 10/10/22 06:59 Est GFR ( Amer) 115.5 ml/min 10/10/22 06:59 Est GFR (Non-Af Amer) 99.7 ml/min 10/10/22 06:59 BUN/Creatinine Ratio 31.3 (10-20) H 10/10/22 06:59 Glucose 95 mg/dl (70-99(Fasting)) 10/10/22 06:59 Estimat Average Glucose 108 mg/dl 10/10/22 06:59 Hemoglobin A1c 5.4 % (4.5-5.6) 10/10/22 06:59 Calcium 8.8 mg/dl (8.6-10.3) 10/10/22 06:59 Total Bilirubin 0.6 mg/dl (0.2-1.0) 10/09/22 10:10 AST 14 U/L (13-39) 10/09/22 10:10 ALT 8 U/L (7-52) 10/09/22 10:10 Alkaline Phosphatase 59 U/L (34-104) 10/09/22 10:10 Total Creatine Kinase 152 U/L (26-192) 10/09/22 11:21 Troponin I High Sens 8.7 pg/ml (0-14) 10/09/22 10:10 Total Protein 6.9 gm/dl (6.0-8.3) 10/09/22 10:10 Albumin 4.3 gm/dl (3.4-5.0) 10/09/22 10:10 Globulin 2.6 gm/dl (2.5-4.0) 10/09/22 10:10 Albumin/Globulin Ratio 1.7 (0.9-2) 10/09/22 10:10 Lipase 5 U/L (11-82) L 10/09/22 10:10 Vitamin B12 114 pg/ml (180-914) L 10/10/22 06:59 TSH 1.085 uIu/ml (0.300-4.500) 10/10/22 06:59 HCG, Qual Negative (Negative) 10/09/22 10:10 Urine Color Yellow 10/09/22 13:54 Urine Appearance Clear (Clear) 10/09/22 13:54 Urine pH 7.0 (4.5-7.5) 10/09/22 13:54 Ur Specific [place] 1.023 (1.000-1.030) 10/09/22 13:54 Urine Protein Trace (Negative) H 10/09/22 13:54 Urine Glucose (UA) Negative (Negative) 10/09/22 13:54 Urine Ketones Trace (Negative) H 10/09/22 13:54 Urine Blood Negative (Negative) 10/09/22 13:54 Urine Nitrite Negative (Negative) 10/09/22 13:54 Urine Bilirubin Negative (Negative) 10/09/22 13:54 Urine Urobilinogen Negative (Negative) 10/09/22 13:54 Ur Leukocyte Esterase 1+ (Negative) H 10/09/22 13:54 Urine WBC (Auto) 10-30 /hpf (0-5) H 10/09/22 13:54 Urine RBC (Auto) 0-4 /hpf (0-4) 10/09/22 13:54 U Hyaline Cast (Auto) 1-5 /lpf (0-5) 10/09/22 13:54 U Epithel Cells (Auto) >30 /lpf (0-5) H 10/09/22 13:54 Urine Bacteria (Auto) Negative (Negative) 10/09/22 13:54 Salicylates < 3.0 mg/dl (3.0-30) L 10/09/22 14:06 Urine Opiates Screen Neg (Neg) 10/09/22 13:54 Ur Methadone, Qual Neg (Neg) 10/09/22 13:54 Acetaminophen < 3 ug/ml (10-30) L 10/09/22 14:06 Urine Barbiturates Neg (Neg) 10/09/22 13:54 Ur Phencyclidine (PCP) Neg (Neg) 10/09/22 13:54 U Amphetamin/Meth Scrn Neg (Neg) 10/09/22 13:54 MDMA (Ecstasy) Screen Neg (Neg) 10/09/22 13:54 U Benzodiazepines Scrn Neg (Neg) 10/09/22 13:54 Ur Cocaine Metabolite Neg (Neg) 10/09/22 13:54 U Marijuana (THC) Screen Pos (Neg) H 10/09/22 13:54 Ethyl Alcohol mg/dL < 10.0 mg/dl (<10.0) 10/09/22 11:21 SARS-CoV-2, RNA, NAAT NEGATIVE (NEGATIVE) 10/09/22 13:23 Impressions Chest X-Ray 10/09/22 10:33 XR chest 1V portable CLINICAL HISTORY: Fall. COMPARISON STUDY: No previous studies for comparison. FINDINGS: Lung volumes are normal. Lungs are clear. There is no pneumothorax or pleural effusion. Cardiac size is normal. Mediastinal contours are normal. There is no evidence for pulmonary edema. IMPRESSION: No acute cardiopulmonary findings. ACT 112: Negative or not required by law. Electronically signed by: Tommy Rodriguez M.D. 10/09/2022 10:[address] 10/09/22 10:41 CT OF THE HEAD WITHOUT CONTRAST CLINICAL HISTORY: fall, LOC COMPARISON STUDY: No previous studies for comparison. CT DOSE: 2638.62 mGy.cm TECHNIQUE: Helical axial images of the head were obtained without IV contrast. Automated exposure control was utilized for the study. A dose lowering technique was utilized adhering to the principles of ALARA. FINDINGS: No acute intracranial hemorrhage, midline shift or mass effect is present. Subtle white matter hypodensities may reflect small vessel disease. The ventricular system is unremarkable. The basal cisterns are patent. No extra- axial collections are present. There are no findings to suggest acute dural sinus thrombosis or acute territorial infarct. No significant calvarial abnormalities are present. Visualized portions of the sinuses and mastoid air cells are clear. IMPRESSION: 1. No acute intracranial findings. 2. No acute calvarial fracture. ACT 112: Negative or not required by law. Electronically signed by: Tommy Rodriguez M.D. 10/09/2022 11:25 AM Abdomen/Pelvis CT 10/09/22 10:48 CT OF THE ABDOMEN AND PELVIS WITHOUT CONTRAST CLINICAL HISTORY: nausea, ?fall COMPARISON STUDY: No previous studies for comparison. TECHNIQUE: Axial images of the abdomen and pelvis were obtained without IV contrast. Images were reviewed in the axial, sagittal, and coronal planes. Automated exposure control was utilized for the study. A dose lowering technique was utilized adhering to the principles of ALARA. FINDINGS: Lung bases are unremarkable. No pneumatosis, free air or portal venous gas is present. No hemoperitoneum is present. Evaluation of the abdomen and pelvis is suboptimal on this unenhanced exam. Liver, spleen, adrenal glands, kidneys and pancreas are normal. There is no biliary or pancreatic ductal dilatation. There is a gallstone within the gallbladder. There is no evidence for acute cholecystitis. The appendix is normal. There is no evidence for a bowel obstruction. Moderate amount of stool within the colon is noted. There is no lymphadenopathy. A 2.2 cm hypodense right adnexal lesion is noted. This has peripheral calcifications. No acute fractures are identified within the visualized skeletal structures. IMPRESSION: 1. No acute traumatic findings within the abdomen or pelvis on unenhanced exam. 2. 2.2 cm hypodense right adnexal lesion with peripheral calcifications. Although not highly suspicious, this is indeterminate. This likely reflects a right ovarian cystic lesion. Nonemergent pelvic ultrasound is recommended. 3. Cholelithiasis. ACT 112: Negative or not required by law. Electronically signed by: Tommy Rodriguez M.D. 10/09/2022 11:[address] 10/09/22 10:48 CT cervical spine wo con CLINICAL HISTORY: 52 years-old Female with fall, LOC. Acute head and neck injury status post fall COMPARISON: Head CT of same day TECHNIQUE: Multiple axial CT images of the cervical spine were obtained without contrast. A dose lowering technique was utilized adhering to the principles of ALARA. FINDINGS: Moderate degeneration at the C1-C2 junction. Mild to moderate intervertebral disc space narrowing and spondylotic spurring and circumferential disc osteophyte complex at the C5-C6. Mild multilevel uncovertebral hypertrophy and facet arthrosis. No acute fracture, subluxation or endplate erosion. The cervical soft tissues appear unremarkable. The visualized lung apices appear clear. IMPRESSION: No acute cervical spine fracture or subluxation identified. ACT 112: Negative or not required by law. The above report was generated using voice recognition software. It may contain grammatical, syntax or spelling errors. Electronically signed by: Angel Hassan M.D. 10/09/2022 11:29 AM Brain MRI 10/09/22 14:01 MR brain seizure wo/w con HISTORY: 52 years-old Female AMS ?possible seizure acutely altered mental status with seizure-like activity COMPARISON: Head CT 10/09/2022 TECHNIQUE: Multiplanar multisequence MRI of the brain was obtained both with and without the use of IV contrast. FINDINGS: No restricted diffusion. Midline structures are unremarkable. Degenerative changes of the imaged cervical spine. No acute intracranial hemorrhage, midline shift, abnormal extra-axial collection, hydrocephalus or intracranial mass. Mild scattered T2/FLAIR hyperintense foci throughout the white matter. The brain volume is within normal limits. Normal appearance of the mesial temporal lobes. Cerebral venous sinuses and major arterial flow voids appear patent. Minimal mucosal thickening of the ethmoid air cells. Mastoid air cells are clear. Skull, orbits and soft tissues are unremarkable. No abnormal enhancement. IMPRESSION: 1. No acute intracranial abnormality. No acute or subacute infarct. 2. No abnormal enhancement. ACT 112: Negative or not required by law. The above report was generated using voice recognition software. It may contain grammatical, syntax or spelling errors. Electronically signed by: Angel Hassan M.D. 10/09/2022 5:32 PM Pelvis Ultrasound 10/10/22 01:00 PELVIC ULTRASOUND, TRANSABDOMINAL AND TRANSVAGINAL HISTORY: Follow-up right ovarian lesion. Abnormal abdomen and pelvis CT. COMPARISON: Abdomen and pelvis CT 10/09/2022. FINDINGS: Uterus: 7.3 x 3.8 x 5.2 cm. No uterine masses. Endometrial stripe: 4 mm in thickness. There are few tiny endometrial cysts noted. Right ovary: Normal in size and demonstrates normal color flow. There is redemonstration of the 2.5 x 2.2 x 1.6 cm right ovarian cyst. This contains a small amount of peripheral calcification. Left ovary: Normal in size and demonstrates normal color flow. Miscellaneous:No pelvic free fluid. IMPRESSION: 1. Confirmation of the 2.5 x 2.2 x 1.6 cm right ovarian cyst which contains a small amount of peripheral calcification. 3 month pelvic ultrasound follow-up can be performed to ensure stability. 2. Normal endometrial thickness. 3. Normal left ovary. ACT 112: Negative or not required by law. Electronically signed by: Victor M Garrison M.D. 10/10/2022 11:17 AM Ordered Studies 10/09/22 10:41 CT head/brain wo con Stat 10/09/22 10:48 CT abd pelvis wo con Stat CT cervical spine wo con Stat 10/09/22 14:01 MR brain seizure wo/w con Routine 10/10/22 01:00 US pelvic complete Routine US transvaginal Routine Hospital Course (1) Altered mental status: (2) Amnesia: (3) Headache: Patient is 52-year-old female without significant known past medical history who presented to ER today after being found on floor this morning. Reported heard banging sounds and then pt found on floor. Has ecchymosis chin. Patient unable to remember events. Altered mental status Likely secondary to seizure ? Marijuana contributing as well -MRI Brain:No acute intracranial abnormality. No acute or subacute infarct. No abnormal enhancement. --Neck CT:No acute cervical spine fracture or subluxation identified. 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 Although not highly suspicious, this is indeterminate. This likely reflects a right ovarian cystic lesion. Nonemergent pelvic ultrasound is recommended. --Pelvic ultrasound: Confirmation of the 2.5 x 2.2 x 1.6 cm right ovarian cyst which contains a small amount of peripheral calcification. 3 month pelvic ultrasound follow-up can be performed to ensure stability. Normal endometrial thickness. Normal left ovary. -- Advised to follow-up with [facility] as outpatient DVT Px SCDs Code Status Full Code Total Time Total Time Spent Total Time Spent (In Minutes): 56 minutes Discharge Plan Discharge Items Patient Disposition: Home - Self-Care Reason For Visit: AMS Discharge Diagnosis: Altered mental status Possible seizure Right ovarian cyst Vitamin B12 deficiency Activity: Per Instructions section Exercise/Sports: Gradually increase as tolerated Driving/Machine Use: No driving permitted until cleared by your neurologist Non-emergency contact: Primary Care Provider and Neurologist Call non-emergency contact if: you have any medication questions, your symptoms worsen, your pain is concerning for you and you have a fever Follow-up/Referrals: PCP,NO [Primary Care Provider] - Diet: Heart Healthy Addtl Attending Provider Instructions: Follow-up with your primary care physician in 1 week Follow-up with your neurologist Dr. David Orozco in 1 to 2 weeks as advised Follow-up with your [facility] doctor in 1 month for further evaluation of right ovarian cyst as advised. -- Your blood cultures are pending at the time of discharge. Follow-up with your physician for results. --- No driving permitted until cleared by her neurologist. --- Start taking Keppra 500 mg twice a day as recommended by your neurologist. --- Start taking vitamin B12 supplements as prescribed. Seek immediate medical attention if your symptoms reoccur or worsen Please take all medications as instructed on discharge list below. Please call if you have any questions or problems. You can reach a [facility] hospitalist on duty at [facility] 24 hours a day by calling [phone] Pending Studies at Discharge: Yes Studies:: Blood Cultures Stand-Alone Forms: My [facility], Smoking Cessation Medications and DC Order Prescriptions: New levetiracetam [Keppra] 500 mg Tablet 500 mg PO BID Qty: 60 1RF cyanocobalamin (vitamin B-12) 500 mcg Tablet 1,000 mcg PO QAM Qty: 60 1RF Continued albuterol sulfate 90 mcg/actuation HFA aerosol inhaler 2 puff INHALATION 6XD PRN (Reason: sob) Discharge Orders: Discharge Order (Routine); Ordered 10/10/22 Ordered By: Ashok Johnson Admission Data Admit Date/Time: 10/09/22 13:19 Attending Provider: Ashok Johnson Admit Provider: Anthony Varela Primary Care Provider: PCP,NO Other Providers: Anthony Varela ; David Orozco
[2022-10-13 10:52] LABS: Marijuana Quant, GCMS Urine 2283 ng/mL (<5)
== END 2022-10-10 16:00 | disposition home or self-care (01) ==
LOC: EDINP 09:54 → ED 09:54 → SUATTDRO 13:19 → EDINP 16:23 → 2N 16:53

== ENCOUNTER 2023-01-05 13:03 | Observation (INO) ==
--- NOTE | 2023-01-05 13:07 | ED Triage Note ---
Date of Service January 05, 2023 History of Present Illness This patient was briefly evaluated while in triage. An abbreviated physical exam was performed. This patient is a 52-year-old Female who presents to the ED for evaluation of nausea and vomiting for the past 3 days. Not really having abdominal pain. Denies chest pain or SOB. Denies any urinary symptoms or problems with her BMs. Had similar symptoms a few years ago with no cause found. No chronic GI symptoms. Has taken Pepto-Bismol at home without improvement. LMP 1.5 years ago due to menopause. Physical Exam GENERAL: Non-toxic and in no acute distress. HEENT: Pupils equal. No obvious scleral icterus. HEART: Regular rate and rhythm. LUNGS: Clear to auscultation. No accessory muscle use. ABDOMEN: Soft, normal BS. Non tender to palpation. No guarding or rigidity. NEURO: Alert and oriented. No obvious neurological deficits on quick neuro exam. Initial orders for labs and / or imaging were placed and patient was placed in the waiting area until a bed is available. Please see further documentation for the full ED course.
[2023-01-05] MEDS ORDERED: ONDANSETRON INJ 2 MG/ML 2 ML VIAL IV STA (13:08)
[2023-01-05] MEDS ORDERED: SODIUM CHLORIDE 0.9% 500 ML IV SCH (13:15)
[2023-01-05 14:16] LABS: Basophils # (auto) 0.03 K/uL (0-0.2); Basophils % (auto) 0.3 %; Hematocrit (blood only) 45.3 % (37.0-47.0); Hemoglobin 15.7 g/dl (12.0-16.0); Immature Granulocytes # (auto) 0.04 K/uL (0.01-0.20); Immature Granulocytes % (auto) 0.4 %; Lymphocytes # (auto) 1.17 K/uL (1.2-3.4); Lymphocytes % (auto) 10.9 %; Mean Corpuscular Hemoglobin 29.2 pg (25.0-34.0); Mean Corpuscular Hgb Conc 34.7 g/dL (32.0-36.0); Mean Corpuscular Volume 84.4 fL (80.0-100.0); Monocytes # (auto) 0.33 K/uL (0.11-0.59); Monocytes % (auto) 3.1 %; Neutrophils # (auto) 9.12 K/uL (1.40-6.50); Neutrophils % (auto) 85.3 %; Platelet Count 290 K/uL (130-400); RDW Coefficient of Variation 12.2 % (11.5-14.5); RDW Standard Deviation 36.9 fL (36.4-46.3); Red Blood Count 5.37 M/uL (4.20-5.40); White Blood Count 10.69 K/ul (4.8-10.8)
[2023-01-05 14:31] LABS: Alanine Aminotransferase 10 U/L (7-52); Albumin Globulin Ratio 1.6 (0.9-2); Alkaline Phosphatase 66 U/L (34-104); Anion Gap 13 (3-11); Aspartate Aminotransferase 16 U/L (13-39); BUN Creatinine Ratio 27.5 (10-20); Blood Urea Nitrogen 30 mg/dl (6-23); Calcium 10.4 mg/dl (8.6-10.3); Carbon Dioxide 32 mmol/L (21-32); Chloride 92 mmol/L (98-107); Est GFR (African American) 66.6 ml/min; Est GFR (Non-African American) 57.5 ml/min; Globulin 3.1 gm/dl (2.5-4.0); Glucose 112 mg/dl (70-99(Fasting)); Lipase 5 U/L (11-82); Magnesium 1.9 mg/dl (1.7-2.4); Potassium 3.2 mmol/L (3.5-5.1); Sodium 137 mmol/L (136-145); Total Protein 8.1 gm/dl (6.0-8.3)
[2023-01-05 14:34] LABS: Appearance Urine Turbid (Clear); Bacteria Urine Automated 1+ (Negative); Bilirubin Urine 1+ (Negative); Blood Urine Trace (Negative); Color Urine Dark Yellow; Epithelial Cell Urine Auto >30 /lpf (0-5); Glucose Urine UA Negative (Negative); Ketones Urine 4+ (Negative); Leukocyte Esterase Urine 3+ (Negative); Nitrite Urine Negative (Negative); Protein Urine 1+ (Negative); Specific Gravity Urine 1.025 (1.000-1.030); Urobilinogen Urine Negative (Negative); WBC Urine Automated >30 /hpf (0-5); pH Urine 6.5 (4.5-7.5)
[2023-01-05 14:37] LABS: Troponin I High Sensitivity 24.5 pg/ml (0-14)
[2023-01-05 14:49] LABS: Mucus Urine Present (None Prsent)
[2023-01-05] MEDS ORDERED: SODIUM CHLORIDE 0.9% 1000ML 2,000 ML IV ONE (15:31)
[2023-01-05] MEDS ORDERED: METOCLOPRAMIDE HCL INJ 5 MG/ML 2 ML VIAL IV STA (15:31)
[2023-01-05 15:34] LABS: Influenza A virus by PCR Negative (Neg); Influenza B virus by PCR Negative (Neg); RSV by PCR Negative (Neg); SARS CoV2 RNA(COVID-19) Ceph NEGATIVE (Negative)
--- NOTE | 2023-01-05 15:43 | Emergency Department Note ---
Impression & Plan Pyelonephritis, Elevated troponin, Acute hypokalemia, Vomiting ED Provider Note NAME: GEE FAUST AGE: 52 SEX: F : 1970 ARRIVES VIA: Walk-In INFORMANT: Patient ED PROVIDER(S): Parth Yanes DO CHIEF COMPLAINT: abdominal pain HPI: Patient is a 52-year-old female who presents ER for nausea, vomiting, and diarrhea. Symptoms started on Wednesday. She did have diarrhea for short amount of time. She has been unable to keep anything down since then. Patient does admit to urinary urgency but denies any dysuria. No headache or change in vision. No chest pain or shortness of breath. No abdominal pain but notes that her stomach is very upset. Admits to chronic back pain but does not think that she has any new back pain. She did hit her head when she rolled out of bed on Wednesday. Again she has no headache or double vision. PAST MEDICAL HISTORY:See Below PAST SURGICAL HISTORY:See Below FAMILY HISTORY:See Below SOCIAL HISTORY:See Below HOME MEDICATIONS:See Below ALLERGIES:See Below VITALS:See Below PHYSICAL EXAMINATION: GENERAL: Sitting up in bed, alert, disheveled EYE EXAM: normal conjunctiva. HEAD: Contusion around the right occiput. OROPHARYNX: Dry mucous membranes NECK: supple, no nuchal rigidity, no adenopathy, non-tender LUNGS: Clear to auscultation. Normal chest wall mechanics HEART: no murmurs, S1 normal and S2 normal ABDOMEN: abdomen soft, non-tender, normo-active bowel sounds, no masses, no rebound or guarding. BACK: Back is symmetrical on inspection and there is no deformity, no midline tenderness, no CVA tenderness. UPPER EXTREMITIES: upper extremities are grossly normal. LOWER EXTREMITIES: No pitting edema. NEURO EXAM: Normal sensorium, cranial nerves II-XII grossly intact, normal speech, no gross weakness of arms, no gross weakness of legs. MEDICAL DECISION MAKING: Patient is a 52-year-old female who presents ER for above-stated complaint. IV was established blood work was obtained. External records reviewed. Labs show no significant leukocytosis or anemia. BMP with a mild hyponatremia at 3.2. Calcium was slightly up at 10.4. Troponin elevated at 25 although downtrending to 19 on repeat. UA does suggest contamination but possible infection with leuks whites and bacteria. CT abdomen pelvis was performed and shows a likely a sending infection. Patient was covered with IV Rocephin. Given IV fluids. She was given Zofran as well as Reglan. She was updated at bedside. Discussed case with the hospitalist for further evaluation management and treatment. Triage Nursing notes reviewed. Limited review of prior medical records performed Vital Signs: reviewed and remarkable for hypotension Differential diagnosis: Differential diagnosis includes etiologies such as sepsis, UTI, pneumonia, metabolic, electrolyte abnormalities, cardiac sources, intracerebral event, toxicologic, neurological, as well as others were entertained. ER treatment provided: See below Diagnostics interpreted by me include EKG and cardiac monitoring as listed below: -Cardiac Monitoring: An order was placed for continuous cardiac monitoring. The monitor shows a rate of 80 with sinus rhythm. -ECG: none -Laboratory studies:Interpreted by me as stated above in MDM and shown below. Imaging studies: Xrays: As interpreted by me:none CTs show: CT abdomen pelvis showed no obvious obstruction per my read CT abdomen pelvis per radiology showed pylo Consultation(s): As described in MDM Procedures:none Critical Care: None Past Med/Surg History Surgical History (Updated 01/05/23 @ 18:24 by Renae De Jesus PA-C) History of tonsillectomy Previous section Family History Other Breast cancer Diabetes Hypertension Stroke Social History Smoking Status: Never smoker Hx Alcohol Use: No Hx Substance Use: Yes Non-Prescribed Medications: Marijuana Preferred Language: Rwandan Communication Ability: Effective Electronics Processing Supervisor Required: No Beliefs That Will Affect Care: None Current Living Situation: Other Current Living Situation Comment: staying with a friend. Feels Safe at Home: Yes Assistive Devices: Denture - Upper and Glasses Allergies Allergies Allergy/AdvReac Type Severity Reaction Status Date / Time No Known Allergies Allergy Verified 10/09/22 14:05 [id number] Allergy Unknown Unknown Uncoded 10/09/22 14:05 N Allergy Unknown Unknown Uncoded 10/09/22 14:05 Home Meds Home Medications Medication Instructions Recorded Confirmed albuterol sulfate 90 mcg/actuation 2 puff inhalation 6XD PRN sob 10/09/22 01/05/23 aerosol inhaler Results & Data (ED) Vital Signs Vital Signs - 24 hr 01/05/23 13:05 01/05/23 16:00 01/05/23 16:00 Temperature 36.4 C L Temperature Source Temporal Artery Scan Pulse Rate 76 Pulse Rate [Right Finger] 73 Pulse Rhythm [Right Finger] Regular Pulse Strength [Right Finger] Normal Respiratory Rate 18 18 Respiratory Effort / Characteristics Non-Labored Spontaneous Non-Labored Respiratory Depth Normal Normal Respiratory Pattern Regular Regular Blood Pressure 159/112 H Blood Pressure [Right Arm] 124/89 Blood Pressure Mean 127 Blood Pressure Mean [Right Arm] 100 Blood Pressure Position Sitting Blood Pressure Position [Right Arm] Lying Pulse Oximetry 95 97 Oxygen Delivery Method Room Air Room Air Room Air Sepsis Recent Fever Within 48 Hours No Sepsis New/Unexplained Change in Mental Status No Sepsis Action Taken by Nursing No Action Required 01/05/23 16:17 01/05/23 18:00 Temperature Temperature Source Pulse Rate 73 Pulse Rate [Right Finger] 85 Pulse Rhythm [Right Finger] Regular Pulse Strength [Right Finger] Normal Respiratory Rate 18 Respiratory Effort / Characteristics Non-Labored Respiratory Depth Normal Respiratory Pattern Regular Blood Pressure Blood Pressure [Right Arm] 99/69 L Blood Pressure Mean Blood Pressure Mean [Right Arm] 79 Blood Pressure Position Blood Pressure Position [Right Arm] Lying Pulse Oximetry 98 Oxygen Delivery Method Room Air Sepsis Recent Fever Within 48 Hours Sepsis New/Unexplained Change in Mental Status Sepsis Action Taken by Nursing Laboratory Data 01/05/23 13:58 01/05/23 13:58 Lab Results 01/05/23 01/05/23 01/05/23 Range/Units 13:58 13:58 13:58 WBC 10.69 (4.8-10.8) K/ul RBC 5.37 (4.20-5.40) M/uL Hgb 15.7 (12.0-16.0) g/dl Hct 45.3 (37.0-47.0) % MCV 84.4 (80.0-100.0) fL MCH 29.2 (25.0-34.0) pg MCHC 34.7 (32.0-36.0) g/dL RDW Std Deviation 36.9 (36.4-46.3) fL RDW Coeff of Juliana 12.2 (11.5-14.5) % Plt Count 290 (130-400) K/uL MPV 11.0 (9.4-12.4) fL Immature Gran % (Auto) 0.4 % Neut % (Auto) 85.3 % Lymph % (Auto) 10.9 % [place] % (Auto) 3.1 % Eos % (Auto) 0.0 % Baso % (Auto) 0.3 % Neut # (Auto) 9.12 H (1.40-6.50) K/uL Lymph # (Auto) 1.17 L (1.2-3.4) K/uL [place] # (Auto) 0.33 (0.11-0.59) K/uL Eos # (Auto) 0.00 (0-0.50) K/uL Baso # (Auto) 0.03 (0-0.2) K/uL Immature Gran # (Auto) 0.04 (0.01-0.20) K/uL Sodium 137 (136-145) mmol/L Potassium 3.2 L (3.5-5.1) mmol/L Chloride 92 L (98-107) mmol/L Carbon Dioxide 32 (21-32) mmol/L Anion Gap 13 H (3-11) BUN 30 H (6-23) mg/dl Creatinine 1.09 (0.6-1.2) mg/dl Est Cr Clr Drug Dosing Not Reportable Est GFR ( Amer) 66.6 ml/min Est GFR (Non-Af Amer) 57.5 ml/min BUN/Creatinine Ratio 27.5 H (10-20) Glucose 112 H (70-99(Fasting)) mg/dl Calcium 10.4 H (8.6-10.3) mg/dl Magnesium 1.9 (1.7-2.4) mg/dl Total Bilirubin 1.0 (0.2-1.0) mg/dl AST 16 (13-39) U/L ALT 10 (7-52) U/L Alkaline Phosphatase 66 (34-104) U/L Troponin I High Sens 24.5 H (0-14) pg/ml Total Protein 8.1 (6.0-8.3) gm/dl Albumin 5.0 (3.4-5.0) gm/dl Globulin 3.1 (2.5-4.0) gm/dl Albumin/Globulin Ratio 1.6 (0.9-2) Lipase 5 L (11-82) U/L Urine Color Urine Appearance (Clear) Urine pH (4.5-7.5) Ur Specific [place] (1.000-1.030) Urine Protein (Negative) Urine Glucose (UA) (Negative) Urine Ketones (Negative) Urine Blood (Negative) Urine Nitrite (Negative) Urine Bilirubin (Negative) Urine Urobilinogen (Negative) Ur Leukocyte Esterase (Negative) Urine WBC (Auto) (0-5) /hpf Urine RBC (Auto) (0-4) /hpf U Hyaline Cast (Auto) (0-5) /lpf U Epithel Cells (Auto) (0-5) /lpf Urine Bacteria (Auto) (Negative) Urine Mucus (None Prsent) SARS-CoV-2 (PCR) NEGATIVE (Negative) Influenza Type A (PCR) Negative (Neg) Influenza Type B (PCR) Negative (Neg) RSV (RT-PCR) Negative (Neg) 01/05/23 01/05/23 Range/Units 16:33 Unknown WBC (4.8-10.8) K/ul RBC (4.20-5.40) M/uL Hgb (12.0-16.0) g/dl Hct (37.0-47.0) % MCV (80.0-100.0) fL MCH (25.0-34.0) pg MCHC (32.0-36.0) g/dL RDW Std Deviation (36.4-46.3) fL RDW Coeff of Juliana (11.5-14.5) % Plt Count (130-400) K/uL MPV (9.4-12.4) fL Immature Gran % (Auto) % Neut % (Auto) % Lymph % (Auto) % [place] % (Auto) % Eos % (Auto) % Baso % (Auto) % Neut # (Auto) (1.40-6.50) K/uL Lymph # (Auto) (1.2-3.4) K/uL [place] # (Auto) (0.11-0.59) K/uL Eos # (Auto) (0-0.50) K/uL Baso # (Auto) (0-0.2) K/uL Immature Gran # (Auto) (0.01-0.20) K/uL Sodium (136-145) mmol/L Potassium (3.5-5.1) mmol/L Chloride (98-107) mmol/L Carbon Dioxide (21-32) mmol/L Anion Gap (3-11) BUN (6-23) mg/dl Creatinine (0.6-1.2) mg/dl Est Cr Clr Drug Dosing Est GFR ( Amer) ml/min Est GFR (Non-Af Amer) ml/min BUN/Creatinine Ratio (10-20) Glucose (70-99(Fasting)) mg/dl Calcium (8.6-10.3) mg/dl Magnesium (1.7-2.4) mg/dl Total Bilirubin (0.2-1.0) mg/dl AST (13-39) U/L ALT (7-52) U/L Alkaline Phosphatase (34-104) U/L Troponin I High Sens 19.1 H D (0-14) pg/ml Total Protein (6.0-8.3) gm/dl Albumin (3.4-5.0) gm/dl Globulin (2.5-4.0) gm/dl Albumin/Globulin Ratio (0.9-2) Lipase (11-82) U/L Urine Color Dark Yellow Urine Appearance Turbid A (Clear) Urine pH 6.5 (4.5-7.5) Ur Specific [place] 1.025 (1.000-1.030) Urine Protein 1+ H (Negative) Urine Glucose (UA) Negative (Negative) Urine Ketones 4+ H (Negative) Urine Blood Trace H (Negative) Urine Nitrite Negative (Negative) Urine Bilirubin 1+ H (Negative) Urine Urobilinogen Negative (Negative) Ur Leukocyte Esterase 3+ H (Negative) Urine WBC (Auto) >30 H (0-5) /hpf Urine RBC (Auto) 5-10 H (0-4) /hpf U Hyaline Cast (Auto) 1-5 (0-5) /lpf U Epithel Cells (Auto) >30 H (0-5) /lpf Urine Bacteria (Auto) 1+ H (Negative) Urine Mucus Present A (None Prsent) SARS-CoV-2 (PCR) (Negative) Influenza Type A (PCR) (Neg) Influenza Type B (PCR) (Neg) RSV (RT-PCR) (Neg) Administered Medications Discontinued Medications Sodium Chloride (Nss) 500 mls @ 999 mls/hr IV .Q31M [facility] Stop: 01/05/23 13:45 Last Admin: 01/05/23 15:53 Dose: 999 mls/hr Documented By: AP Sodium Chloride (Nss 1000ml) 2,000 mls @ 999 mls/hr IV .Q2H1M ONE Stop: 01/05/23 17:31 Last Admin: 01/05/23 15:53 Dose: 999 mls/hr Documented By: AP Ceftriaxone Sodium (Rocephin) 2,000 mg in 70 mls @ 140 mls/hr IV NOW STA Stop: 01/05/23 17:37 Last Admin: 01/05/23 18:05 Dose: 140 mls/hr Documented By: AP Ioversol (Optiray 320 100ml) 92 ml IV ONCE ONE Stop: 01/05/23 16:03 Last Admin: 01/05/23 16:03 Dose: 92 ml Documented By: PLW Metoclopramide HCl (Metoclopramide Hcl Inj 5 Mg/Ml 2 Ml Vial) 5 mg IV NOW STA Stop: 01/05/23 15:32 Last Admin: 01/05/23 15:51 Dose: 5 mg Documented By: AP Ondansetron HCl (Ondansetron Inj 2 Mg/Ml 2 Ml Vial) 4 mg IV NOW STA Stop: 01/05/23 13:09 Last Admin: 01/05/23 14:02 Dose: 4 mg Documented By: ROSA ISELA Imaging Data Radiologist's Impression: Abdomen/Pelvis CT 01/05/23 15:[address] WITH IV CONTRAST CT DOSE: 1210.86 mGy.cm HISTORY: Acute generalized abdominal pain with nausea and vomiting. abd pain TECHNIQUE: Multiaxial CT images of the abdomen and pelvis were performed following the IV administration of 92 cc of Optiray, A dose lowering technique was utilized adhering to the principles of ALARA. COMPARISON STUDY: 10/09/2022 FINDINGS: Clear lung bases. No free air. Spleen, mildly atrophic pancreas and adrenal glands are unremarkable. Cholelithiasis. Unremarkable liver. Patent portal vein. Mild cortical scarring of the left kidney. Urothelial thickening of the bilateral ureters with mild increased enhancement. Urinary bladder wall thickening with partial distention. Anteflexed uterus. Previously noted cystic lesion of the right adnexum is not identified. Atherosclerosis of the aorta. No lymphadenopathy. Mild nonspecific distal esophageal wall thickening. No bowel traction or bowel wall thickening. Colonic diverticulosis. Normal appendix. Unremarkable soft tissues. No acute fracture. IMPRESSION: 1. No bowel obstruction or bowel wall thickening. 2. Urinary bladder wall thickening with urothelial thickening and enhancement of the ureters. Findings are suggestive of cystitis with ascending infection. Correlate with urinalysis. 3. Cholelithiasis. 4. Additional findings as above. ACT 112: Negative or not required by law. The above report was generated using voice recognition software. It may contain grammatical, syntax or spelling errors. Electronically signed by: Angel Hassan M.D. 01/05/2023 4:44 PM Discharge Plan Visit Data Chief Complaint: Vomiting Stated Complaint: cant keep anything down ED Provider: Parth Yanes Discharge Problem: Pyelonephritis, Elevated troponin, Acute hypokalemia, Vomiting Forms Stand Alone Forms: Sendoid Prescriptions Prescriptions: No Action albuterol sulfate 90 mcg/actuation HFA aerosol inhaler 2 puff INHALATION 6XD PRN (Reason: sob) Referrals Referrals: PCP,NO [Primary Care Provider] -
[2023-01-05] MEDS ORDERED: OPTIRAY 320 100ml IV ONE (16:02)
--- NOTE | 2023-01-05 16:46 | CT Scan Report ---
ABDOMEN AND PELVIS CT WITH IV CONTRAST CT DOSE: 1210.86 mGy.cm HISTORY: Acute generalized abdominal pain with nausea and vomiting. abd pain TECHNIQUE: Multiaxial CT images of the abdomen and pelvis were performed following the IV administrat ion of 92 cc of Optiray, A dose lowering technique was utilized adhering to the principles of ALARA. COMPARISON STUDY: 10/09/2022 FINDINGS: Clear lung bases. No free air. Spleen, mildly atrophic pancreas and adrenal glands are unre markable. Cholelithiasis. Unremarkable liver. Patent portal vein. Mild cortical scarring of the left kidney. Urothelial thickening of the bilateral ureters with mild increased enhancement. Urinary bladd er wall thickening with partial distention. Anteflexed uterus. Previously noted cystic lesion of the right adnexum is not identified. Atherosclerosis of the aorta. No lymphadenopathy. Mild nonspecific distal esophageal wall thickening. No bowel traction or bowel wall thickening. Colon ic diverticulosis. Normal appendix. Unremarkable soft tissues. No acute fracture. IMPRESSION: 1. No bowel obstruction or bowel wall thickening. 2. Urinary bladder wall thickening with urothelial thickening and enhancement of the ureters. Finding s are suggestive of cystitis with ascending infection. Correlate with urinalysis. 3. Cholelithiasis. 4. Additional findings as above. ACT 112: Negative or not required by law. The above report was generated using voice recognition software. It may contain grammatical, syntax o r spelling errors. Electronically signed by: Angel Hassan M.D. 01/05/2023 4:44 PM
[2023-01-05] MEDS ORDERED: cefTRIAXone SODIUM 2,000 MG/70 ML BAG IV STA (17:08)
--- NOTE | 2023-01-05 18:05 | History & Physical Report ---
Date of Service January 05, 2023 Assessment & Plan (1) Nausea and vomiting: (2) Pyelonephritis: Plan: This is a 52yo F with a PMH of asthma, history of seizure this past September, daily marijuana use who presents with N/V and diarrhea starting on Wednesday and was found to have pyelonephritis. N/V x 4 days, maybe initially a gastroenteritis component as well but diarrhea has subsided Afebrile, no leukocytosis, not meeting sepsis criteria UA abnormal CT abd/pelvis with 1. No bowel obstruction or bowel wall thickening. 2. Urinary bladder wall thickening with urothelial thickening and enhancement of the ureters. Findings are suggestive of cystitis with ascending infection. Correlate with urinalysis Continue empiric Rocephin, follow urine culture, add stool culture if diarrhea recurs, antiemetics, continue IV fluids Clear liquids, advance diet as tolerated (3) Elevated troponin: Plan: HS troponin 24.5 -> 19.1 likely 2/2 above. No chest pain, EKG pending. Trend another trop for completeness, tele overnight (4) Acute hypokalemia: Plan: Initial K 3.2. Replacing, monitor with daily BMP (5) History of seizure: Plan: History of seizure event requiring admission last September. Seen by neuro and started on Keppra which she has since self-discontinued due to side effects. Has continued taking B12 supplement Has not followed up with PCP or neuro since event, denies any known seizure activity since Will need to be set up with PCP at time of dc (6) Marijuana use: Plan: Daily use, recently started a new vape type with flavoring. Educated that use could be contributing to N/V (7) Asthma: Plan: Albuterol rescue inh PRN SOB or wheezing DVT Ppx: SQ lovenox Code status: FULL PCP: no PCP Dispo: Observation med tele Patient seen in collaboration with Dr. Yuan. Please see addendum. History of Present Illness Chief Complaint: N/V/D Primary Care Provider: NO PCP This is a 52yo F with a PMH of asthma, history of seizure this past September, daily marijuana use who presents with N/V and diarrhea starting on Wednesday. 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 Later that evening developed sweating, nausea, vomiting and diarrhea and had multiple bouts. Diarrhea subsided by Wednesday but has continued to feel nauseated and unable to keep anything down since then. Has had small sips of liquids only. Does smoke marijuana daily and recently started to vape fruit flavors with THC as well. Denies any other drug use or new medications. Has history of single seizure for which she was evaluated in our facility last September and found to have B12 deficiency. Was discharged on Keppra 500mg BID but stopped soon after discharge because she did not like the "brain fog" feeling. Denies any recurrent seizures since. Does not have a PCP and has not followed up with neurology. Is reportedly still supplementing B12 daily. Has been having increased urinary frequency and urgency but assumed that was a symtom of menopause. No dysuria, hematuria, fever, chills, lightheadedness, headache, CP, SOB, abdominal pain or constipation. Did hit her head on her desk nearby her bed while tossing and turning in between bouts of vomiting. Has bruising around her R eye from this but denies any loss of consciousness. Allergies Allergy/AdvReac Type Severity Reaction Status Date / Time No Known Allergies Allergy Verified 10/09/22 14:05 [id number] Allergy Unknown Unknown Uncoded 10/09/22 14:05 N Allergy Unknown Unknown Uncoded 10/09/22 14:05 Home Medications Medication Instructions Recorded Confirmed Type albuterol sulfate 90 mcg/actuation 2 puff inhalation 6XD PRN sob 10/09/22 01/05/23 History aerosol inhaler Past Med/Surg History Medical History Asthma History of seizure Surgical History History of tonsillectomy Previous section Family History Other Breast cancer Diabetes Hypertension Stroke Social History Smoking Status: Never smoker Hx Alcohol Use: No Hx Substance Use: Yes Non-Prescribed Medications: Marijuana Preferred Language: Slovak Communication Ability: Effective Director Maternal Child Required: No Beliefs That Will Affect Care: None Current Living Situation: Other Current Living Situation Comment: staying with a friend. Feels Safe at Home: Yes Assistive Devices: Denture - Upper and Glasses Review of Systems Review of Systems: At least ten systems reviewed and negative except as noted in the HPI. Physical Exam Physical Exam: General Appearance: WD/WN, vitals as above, NAD, sitting up in bed, pleasant, conversing easily Head: normocephalic, +R periorbital ecchymosis noted Eyes: normal inspection, PERRL, conjunctivae normal, anicteric sclerae ENT: external ear and nose normal, oropharynx normal Neck: normal visual inspection, trachea midline, no thyromegaly Respiratory: normal respiratory effort, lungs clear to auscultation, no wheeze, rales, rhonchi. No accessory muscle use Cardiovascular: regular rate, rhythm, no murmur, normal peripheral pulses, no BLE edema. Vessels: no JVD Chest: normal inspection of chest Abdomen/GI: normal bowel sounds, soft, nontender, no hepatosplenomegaly Extremities/Musculoskeletal: no cyanosis or clubbing, extremities motor strength 5/5 Neurologic: PERRL, EOMI, accommodation nl, no face palsy, no dysarthria, CN's II-XI intact bilaterally and moves all extremities Psychiatric: A+Ox3, euthymic affect Skin: no rashes, normal color, warm/dry Results & Data Results & Data Vital Signs (Past 12 Hours) Vital Signs Temp Pulse Pulse Resp BP BP Pulse Ox 01/05/23 16:17 73 01/05/23 16:00 01/05/23 16:00 73 18 124/89 97 01/05/23 13:05 36.4 C L 76 18 159/112 H 95 O2 Del Method 01/05/23 16:17 01/05/23 16:00 Room Air 01/05/23 16:00 Room Air 01/05/23 13:05 Room Air Laboratory Results Short CBC 01/05/23 Range/Units 13:58 WBC 10.69 (4.8-10.8) K/ul Hgb 15.7 (12.0-16.0) g/dl Hct 45.3 (37.0-47.0) % Plt Count 290 (130-400) K/uL BMP 01/05/23 13:58 Sodium 137 Potassium 3.2 L Chloride 92 L Carbon Dioxide 32 BUN 30 H Creatinine 1.09 Glucose 112 H Calcium 10.4 H Liver Function 08/15/23 Range/Units 13:58 Total Bilirubin 1.0 (0.2-1.0) mg/dl AST 16 (13-39) U/L ALT 10 (7-52) U/L Alkaline Phosphatase 66 (34-104) U/L Albumin 5.0 (3.4-5.0) gm/dl Urine 01/05/23 Range/Units Unknown Urine Color Dark Yellow Urine Appearance Turbid A (Clear) Urine pH 6.5 (4.5-7.5) Ur Specific [place] 1.025 (1.000-1.030) Urine Protein 1+ H (Negative) Urine Glucose (UA) Negative (Negative) Diagnostic Findings Abdomen/Pelvis CT 01/05/23 15:[address] WITH IV CONTRAST CT DOSE: 1210.86 mGy.cm HISTORY: Acute generalized abdominal pain with nausea and vomiting. abd pain TECHNIQUE: Multiaxial CT images of the abdomen and pelvis were performed following the IV administration of 92 cc of Optiray, A dose lowering technique was utilized adhering to the principles of ALARA. COMPARISON STUDY: 10/09/2022 FINDINGS: Clear lung bases. No free air. Spleen, mildly atrophic pancreas and adrenal glands are unremarkable. Cholelithiasis. Unremarkable liver. Patent portal vein. Mild cortical scarring of the left kidney. Urothelial thickening of the bilateral ureters with mild increased enhancement. Urinary bladder wall thickening with partial distention. Anteflexed uterus. Previously noted cystic lesion of the right adnexum is not identified. Atherosclerosis of the aorta. No lymphadenopathy. Mild nonspecific distal esophageal wall thickening. No bowel traction or bowel wall thickening. Colonic diverticulosis. Normal appendix. Unremarkable soft tissues. No acute fracture. IMPRESSION: 1. No bowel obstruction or bowel wall thickening. 2. Urinary bladder wall thickening with urothelial thickening and enhancement of the ureters. Findings are suggestive of cystitis with ascending infection. Correlate with urinalysis. 3. Cholelithiasis. 4. Additional findings as above. ACT 112: Negative or not required by law. The above report was generated using voice recognition software. It may contain grammatical, syntax or spelling errors. Electronically signed by: Angel Hassan M.D. 01/05/2023 4:44 PM Supervising Physician Co-Signing Physician Notes Pt seen and examined by myself, Nevin Yuan MD on the day of service. Care was coordinated with Renae De Jesus PA-C. Please refer to her note for additional information. 52yoF presenting with N/V. Hypokalemic. CT showed cystitis. AAOx3, no acute distress. Wheezing noted on exam. Abdomen soft, nontender. Urine and blood cultures pending, replete Potassium. Continue Rocephin. Otherwise as above.
[2023-01-05] MEDS ORDERED: POTASSIUM CHLORIDE 40 MEQ in SODIUM CHLORIDE 0.9% 1000ML 1,000 ML IV SCH (18:30)
[2023-01-05] MEDS ORDERED: ONDANSETRON INJ 2 MG/ML 2 ML VIAL IV PRN (21:53)
[2023-01-05] MEDS ORDERED: ACETAMINOPHEN 325 MG TAB PO PRN (21:53)
[2023-01-05] MEDS ORDERED: ALBUTEROL HFA 8 GM INHALER INH PRN (21:53)
[2023-01-05] MEDS ORDERED: Patient's HEIGHT &/or WEIGHT Needed SCH (22:00)
[2023-01-05] MEDS: ENOXAPARIN INJ 40 MG/0.4 ML SYR SQ SCH (22:52)
[2023-01-06 08:39] LABS: Albumin Globulin Ratio 1.6 (0.9-2); Albumin Level 3.7 gm/dl (3.4-5.0); BUN Creatinine Ratio 28.9 (10-20); Bilirubin,Total 0.7 mg/dl (0.2-1.0); Calcium 8.8 mg/dl (8.6-10.3); Creatinine Clr Calc Pharmacy 87.3 ml/min; Est GFR (African American) 103.1 ml/min; Est GFR (Non-African American) 88.9 ml/min; Globulin 2.3 gm/dl (2.5-4.0); Potassium 3.4 mmol/L (3.5-5.1)
[2023-01-06 08:40] LABS: Hematocrit (blood only) 37.7 % (37.0-47.0); Hemoglobin 12.8 g/dl (12.0-16.0); Mean Corpuscular Hemoglobin 29.4 pg (25.0-34.0); Mean Corpuscular Volume 86.7 fL (80.0-100.0); Mean Platelet Volume 10.6 fL (9.4-12.4); Platelet Count 215 K/uL (130-400); RDW Coefficient of Variation 12.4 % (11.5-14.5); RDW Standard Deviation 39.7 fL (36.4-46.3); Red Blood Count 4.35 M/uL (4.20-5.40); White Blood Count 6.72 K/ul (4.8-10.8)
[2023-01-06] MEDS: cefTRIAXone SODIUM 2,000 MG in DEXTROSE 5% 50 ML IV SCH (09:00)
[2023-01-06] MEDS ORDERED: CITALOPRAM 20 MG TAB PO SCH (12:00)
[2023-01-06] MEDS ORDERED: POTASSIUM CHLORIDE CRTAB 20 MEQ TABCR PO STA (13:28)
--- NOTE | 2023-01-06 13:41 | Hospitalist Progress Note ---
Date of Service January 06, 2023 Assessment & Plan (1) Marijuana use: (2) Nausea and vomiting: (3) Complicated UTI (urinary tract infection): Plan 52yo F with a PMH of asthma, history of seizure this past September, daily marijuana use who presents with N/V and diarrhea starting on Wednesday and was found to have complicated uti. She is being managed for the following: Nausea and vomiting: Likely gastroenteritis versus acute infection versus marijuana use Cystitis with ascending infection/complicated UTI N/V x 4 days [employer], maybe initially a gastroenteritis component as well but diarrhea has subsided Afebrile, no leukocytosis, not meeting sepsis criteria at presentation Admitting CTAP suggestive of cystitis with ascending infection. Admitting UA abnormal, follow-up admitting blood culture and urine culture. Continue with Rocephin 01/05. Elevated troponin/likely demand ischemia: Troponin elevated at presentation, flat trended in 20s. Likely secondary to acute illness. No chest pain, EKG with no acute ST or T changes. Telemetry monitoring. Acute hypokalemia: K3.2 at presentation, likely secondary to nausea/vomiting/diarrhea [employer]. Monitor and replete. History of seizure: History of seizure event requiring admission last September. Seen by neuro and started on Keppra which she has since self-discontinued due to side effects. Has continued taking B12 supplement. Has not followed up with PCP or neuro since event, denies any known seizure activity since. Might be not having insurance causing compliance problem. Will need to be set up with PCP at time of dc. Marijuana use: Daily use, recently started a new vape type with flavoring. Educated that use could be contributing to N/V Asthma: Albuterol rescue inh PRN SOB or wheezing DVT Ppx: SQ lovenox Code status: FULL PCP: no PCP Dispo: pending urine cx result, c/w iv atb for now. likely dc in 1-2 days. Admission and Anticipated Discharge Date Admission Date: January 05, 2023 Subjective Patient seen and examined at bedside as a follow-up of complicated UTI/cystitis with ascending infection and elevated troponin and nausea/vomiting at bedside. Patient was lying on bed, on room air, reports no new acute event overnight, reports appetite being low at baseline, similar appetite here, denies any further nausea and vomiting. Denies any fever or chills or headache or di zziness chest pain. Physical Exam Physical Exam: GENERAL: Alert and oriented x3. NAD, on RA. HEENT: No pallor, no icterus. Pupils equal, round and reactive to light. Oral mucosa moist. NECK: No JVD, no neck masses. HEART: S1 and S2 heard. Regular rate and rhythm. No murmur, no gallop. RESPIRATORY SYSTEM: Normal AP diameter. No accessory muscle use. No wheezing, no crackles. ABDOMEN: Soft, bowel sounds present, nontender, no distention. CENTRAL NERVOUS SYSTEM: No facial droop. Speech is clear. Obeys simple commands. Moves extremities. EXTREMITIES: No edema, no erythema seen. No costovertebral angle tenderness Results & Data Results & Data Vital Signs (Past 12 Hours) Vital Signs Temp Pulse Resp BP Pulse Ox O2 Del Method 01/06/23 11:31 36.9 C 63 20 99/64 L 94 Room Air 01/06/23 08:16 36.8 C 60 20 125/77 95 Room Air 01/06/23 02:38 36.5 C 58 L 18 99/62 L 98 Room Air
[2023-01-06] MEDS: ENOXAPARIN INJ 40 MG/0.4 ML SYR SQ SCH (20:04)
[2023-01-07 06:25] LABS: Hematocrit (blood only) 37.2 % (37.0-47.0); Hemoglobin 12.7 g/dl (12.0-16.0); Mean Corpuscular Hemoglobin 29.3 pg (25.0-34.0); Mean Corpuscular Hgb Conc 34.1 g/dL (32.0-36.0); Mean Corpuscular Volume 85.9 fL (80.0-100.0); Mean Platelet Volume 10.9 fL (9.4-12.4); Platelet Count 222 K/uL (130-400); RDW Coefficient of Variation 12.4 % (11.5-14.5); Red Blood Count 4.33 M/uL (4.20-5.40); White Blood Count 6.99 K/ul (4.8-10.8)
[2023-01-07 07:39] LABS: BUN Creatinine Ratio 27.8 (10-20); Calcium 8.6 mg/dl (8.6-10.3); Creatinine Clr Calc Pharmacy 93.3 ml/min; Est GFR (Non-African American) 94.9 ml/min; Magnesium 1.9 mg/dl (1.7-2.4); Phosphorus 3.1 mg/dl (2.5-4.9); Potassium 3.8 mmol/L (3.5-5.1)
[2023-01-07] MEDS: cefTRIAXone SODIUM 2,000 MG in DEXTROSE 5% 50 ML IV SCH (09:29)
--- NOTE | 2023-01-07 15:43 | Discharge Summary ---
Date of Service January 07, 2023 Admission HPI Per Admitting Provider This is a 52yo F with a PMH of asthma, history of seizure this past September, daily marijuana use who presents with N/V and diarrhea starting on Wednesday. 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 Later that evening developed sweating, nausea, vomiting and diarrhea and had multiple bouts. Diarrhea subsided by Wednesday but has continued to feel nauseated and unable to keep anything down since then. Has had small sips of liquids only. Does smoke marijuana daily and recently started to vape fruit flavors with THC as well. Denies any other drug use or new medications. Has history of single seizure for which she was evaluated in our facility last September and found to have B12 deficiency. Was discharged on Keppra 500mg BID but stopped soon after discharge because she did not like the "brain fog" feeling. Denies any recurrent seizures since. Does not have a PCP and has not followed up with neurology. Is reportedly still supplementing B12 daily. Has been having increased urinary frequency and urgency but assumed that was a symtom of menopause. No dysuria, hematuria, fever, chills, lightheadedness, headache, CP, SOB, abdominal pain or constipation. Did hit her head on her desk nearby her bed while tossing and turning in between bouts of vomiting. Has bruising around her R eye from this but denies any loss of consciousness. Admission Exam Per Admitting Provider General Appearance:WD/WN, vitals as above, NAD, sitting up in bed, pleasant, conversing easily Head: normocephalic, +R periorbital ecchymosis noted Eyes:normal inspection, PERRL, conjunctivae normal, anicteric sclerae ENT: external ear and nose normal, oropharynx normal Neck: normal visual inspection, trachea midline, no thyromegaly Respiratory:normal respiratory effort, lungs clear to auscultation, no wheeze, rales, rhonchi. No accessory muscle use Cardiovascular: regular rate, rhythm, no murmur, normal peripheral pulses, no BLE edema. Vessels: no JVD Chest: normal inspection of chest Abdomen/GI: normal bowel sounds, soft, nontender, no hepatosplenomegaly Extremities/Musculoskeletal: no cyanosis or clubbing, extremities motor strength 5/5 Neurologic: PERRL, EOMI, accommodation nl, no face palsy, no dysarthria, CN's II-XI intact bilaterally and moves all extremities Psychiatric:A+Ox3, euthymic affect Skin: no rashes, normal color, warm/dry Principal Diagnosis Marijuana use, nausea and vomiting Complicated UTI/cystitis with ascending infection Discharge Exam GENERAL: Alert and oriented x3. NAD, on RA. HEENT: No pallor, no icterus. Pupils equal, round and reactive to light. Oral mucosa moist. NECK: No JVD, no neck masses. HEART: S1 and S2 heard. Regular rate and rhythm. No murmur, no gallop. RESPIRATORY SYSTEM: Normal AP diameter. No accessory muscle use. No wheezing, no crackles. ABDOMEN: Soft, bowel sounds present, nontender, no distention. CENTRAL NERVOUS SYSTEM: No facial droop. Speech is clear. Obeys simple commands. Moves extremities. EXTREMITIES: No edema, no erythema seen. No costovertebral angle tenderness Discharge Data Allergies Allergy/AdvReac Type Severity Reaction Status Date / Time No Known Allergies Allergy Verified 10/09/22 14:05 Consultations 01/05/23 17:42 ED Decision to Admit Stat Ordered Studies 01/05/23 15:32 CT Abd and Pelvis [CT abd pelvis IV con only] Stat Hospital Course (1) Marijuana use: (2) Nausea and vomiting: (3) Complicated UTI (urinary tract infection): Plan 52yo F with a PMH of asthma, history of seizure this past September, daily marijuana use who presents with N/V and diarrhea starting on Wednesday and was found to have complicated uti. She was managed for the following: Nausea and vomiting: Likely gastroenteritis versus acute infection versus marijuana use. resolved. no prn zofran use seen. Cystitis with ascending infection/complicated UTI N/V x 4 days [employer], maybe initially a gastroenteritis component as well but diarrhea has subsided Afebrile, no leukocytosis, not meeting sepsis criteria at presentation Admitting CTAP suggestive of cystitis with ascending infection. Admitting UA abnormal, follow-up admitting blood culture and urine culture --> UCx came back contaminant. . Continue with Rocephin 01/05. On Cefdinir on discharge. Elevated troponin/likely demand ischemia: Troponin elevated at presentation, flat trended in 20s. Likely secondary to acute illness. No chest pain, EKG with no acute ST or T changes. Telemetry monitoring. Acute hypokalemia: K3.2 at presentation, likely secondary to nausea/vo miting/diarrhea [employer]. Monitor and replete. resolved. History of seizure: History of seizure event requiring admission last September. Seen by neuro and started on Keppra which she has since self-discontinued due to side effects. d/w patient if she wants alternative, she states she will discuss with her primary physician about this, and wouldn't like to be started on any meds for seizure for now. Has continued taking B12 supplement. Has not followed up with PCP or neuro since the event, denies any known seizure activity since. Might be not having insurance causing compliance problem. Will need to be set up with PCP at time of dc. Marijuana use: Daily use, recently started a new vape type with flavoring. Educated that use could be contributing to N/V Asthma: Albuterol rescue inh PRN SOB or wheezing DVT Ppx: SQ lovenox Code status: FULL PCP: no PCP Dispo: pending urine cx result, c/w iv atb for now. likely dc in 1-2 days. Patient being discharged to home with following instruction at the point of discharge: Follow-up with your primary care physician within a week time and likely you will need labs CBC/CMP/magnesium/phosphorus. For your history of seizure disorder, it is important that you maintain your seizure medication. Please follow-up with your neurology in 1 to 2 weeks time upon discharge for further discussion on this. For your UTI you are being discharged on antibiotic, complete the course. Probiotics will be added. Recommend staying away from marijuana use as it will exacerbate your nausea and vomiting. Please make sure that you are able to get your medications today by calling your pharmacy before you leave the hospital so that your treatment continuity is not broken. Home Health Attestation I certify that this patient is under my care and that I, or a physicians medical receptionist assistant working with me, had a face to-face encounter that meets the home health [id number] encounter requirements with this patient. The encounter with the patient was in whole, or in part, for the following medical condition, which is the primary reason for home health care (list medical condition): I certify that, based on my findings, the following services are medically necessary home health services: My clinical findings support the need for the above services because: Further, I certify that my clinical findings support that this patient is homebound (i.e. absences from home require considerable and taxing effort and are for medical reasons or rastafari services or infrequently or of short duration when for other reasons) because: Certification for Home Health Services: Based on the above findings, I certify that this patient is confined to the home and needs intermittent prison care, physical therapy and/or speech therapy or continues to need occupational therapy. The patient is under my care, and I have initiated the establishment of the plan of care. This patient will be followed by a physician who will periodically review the plan of care. Total Time Total Time Spent Total Time Spent (In Minutes): 40 Discharge Plan Discharge Items Patient Disposition: Home - Self-Care Reason For Visit: N/V, PYELONEPHRITIS Discharge Diagnosis: Marijuana use, nausea and vomiting Complicated UTI/cystitis with ascending infection Activity: Resume your previous activity Non-emergency contact: Primary Care Provider Call non-emergency contact if: you have any medication questions, your symptoms worsen and your temperature is above 101 Follow-up/Referrals: PCP,NO [Primary Care Provider] - Diet: Regular Addtl Attending Provider Instructions: Follow-up with your primary care physician within a week time and likely you will need labs CBC/CMP/magnesium/phosphorus. For your history of seizure disorder, it is important that you maintain your seizure medication. Please follow-up with your neurology in 1 to 2 weeks time upon discharge for further discussion on this. For your UTI you are being discharged on antibiotic, complete the course. Probi otics will be added. Recommend staying away from marijuana use as it will exacerbate your nausea and vomiting. Please make sure that you are able to get your medications today by calling your pharmacy before you leave the hospital so that your treatment continuity is not broken. Pending Studies at Discharge: Yes Stand-Alone Forms: [employer], Smoking Cessation Medications and DC Order Prescriptions: New cefdinir 300 mg capsule 300 mg PO BID 7 Days Qty: 14 0RF Probiotic 3 billion cell capsule 3,000 mmu cells PO DAILY 7 Days Qty: 7 0RF Rx Instructions: administer with a meal Continued albuterol sulfate 90 mcg/actuation HFA aerosol inhaler 2 puff INHALATION 6XD PRN (Reason: sob) Discharge Orders: Discharge Order (Routine); Ordered 01/07/23 Ordered By: Katja Alejo Admission Data Admit Date/Time: 01/05/23 18:54 Attending Provider: Katja Alejo Admit Provider: Nevin Yuan Primary Care Provider: PCP,NO Other Providers: Nevin Yuan
== END 2023-01-07 17:17 | disposition home or self-care (01) ==
LOC: 2N 13:03 → ED 13:03 → SUATTDRO 18:54 → 2N 21:19

== ENCOUNTER 2024-07-01 12:56 | Inpatient (IN) ==
--- NOTE | 2024-07-01 14:08 | Emergency Department Note ---
Impression & Plan Seizure-like activity, Headache, Nausea, Weak ED Provider Note Provider: Riky Harding MD CHIEF COMPLAINT: Seizure event HISTORY OF PRESENT ILLNESS: Patient is a 54-year-old female past medical history of seizure presenting here today via ambulance after 3 seizure-like events and half an hour earlier today. Patient resting in room upon evaluation. Patient evidently became sick 2 days ago with some fever chills vomiting and diarrhea. Right now reports maybe just a slight headache. Has not taken any rzpt-fed-iruqgnw medications. Rested some last night. Unsure exactly what happened this morning although states she woke to her boyfriend's a she had a seizure. EMS reports that the patient had 3 seizures in 30 minutes. She does have a distant history of seizure like activity seen in the hospital in 2022. Did not follow-up with neurology and does not take seizure medication. She states she was initially placed on some back then but made her feel off and had brain fog and so she did not continue it. No other recent illnesses. No chest pain or abdominal pain. No rashes. No numbness or tingling or dizziness reported. Patient's unsure exactly what happened with the events earlier today as to how many she might of had how long or if she may have fallen. Denies significant alcohol usage or tobacco usage. Does smoke marijuana by her report. Patient states she does not drive or have a license. Patient denies any significant shortness of breath. Nursing reports the patient did receive Zofran prior to arrival by EMS. PAST MEDICAL HISTORY: As noted above MEDICATIONS: No prescription medications reported SOCIAL HISTORY: Reports marijuana use but no other drug use PHYSICAL EXAM: GENERAL: alert and oriented in no acute distress on stretcher easily arousable with voice that she was initially sleeping in darkened room Head: normocephalic and atraumatic EYES: No injection, discharge or icterus. PERRL, EOMI. NECK: Trachea midline. Supple good range of motion. ENT: Mucous membranes pink and moist. Pharynx without erythema or exudate. No uvular deviation. No stridor or trismus. LUNGS: Airway patent. No retractions. Breath sounds clear with good air entry bilaterally. HEART: Regular rate and rhythm. No chest wall tenderness ABDOMEN: Soft and non-tender, without guarding or rebound. Stable pelvis. SKIN: Acyanotic, warm, dry, without rashes EXTREMITIES: Without swelling, tenderness or deformity NEUROLOGICAL: No focal deficits. No aphasia. No facial droop or slurred speech. Normal strength and tone in the extremities. Sensation to gross touch normal. Ambulatory although slightly unsteady on her feet. EK bpm normal sinus rhythm. No PVC or PAC. No acute ST segment elevation or depression with a QTc of 476. CONTINUOUS CARDIAC MONITORING: was ordered and showed a heart rate of 70s to 90s bpm in normal sinus rhythm Patient's laboratory studies and imaging reviewed. Differential includes Epilepsy, infection, hypoglycemia, electrolyte abnormalities, cardiac sources, intracerebral event, trauma, toxicologic, neurologic, syncope, as well as other pathologies. IMPRESSION/MEDICAL DECISION MAKING: Patient without evidence of trauma. Slight headache. Afebrile here. No neurological deficits. Reports for EMS the patient had 3 possible seizure-like events in short order this morning. Patient states he has been ill for several days. Respiratory viral panel sent. Has not seen neurology outpatient but did review consultation from 01/10/2023 when she was in the hospital here for seizure-like activity. Had negative MRI at that time. She states she has not taken any additional seizure medication. No alcohol use reported though she does use marijuana. Does not drive. Question if illness may have provoked events today. Lower suspicion for CVA. Given the exact unclear history if she was in bed or may have fallen although she denies significant pain, will obtain a CT of the head. Basic blood work is sent including urinalysis ordered to look for infectious etiology. Patient well-appearing with good neck movement and doubt meningitis. Do not believe she requires LP at this time and in discussion with the patient she agrees. Benign abdomen although some nausea earlier is improved after Zofran for EMS. Tolerating some oral intake here. EKG obtained without significant abnormalities noted. Denies palpitations or chest pain. Blood work without anemia or thrombocytopenia. Slight leukocytosis of 15 is noted. No severe electrolyte abnormalities noted although some mild hypokalemia 3.2's noted. No transaminitis. TSH procalcitonin normal. Negative respiratory viral panel. Negative urinalysis. CK minimally elevated 258. Patient drinking water and ambulatory to the bathroom. Discussed with the patient findings. She has been ambulatory but is still a bit unsteady and a slight headache. Freely moving her head and discussed with her findings. Likely nonspecific viral illness questionably causing seizure-like activity today. Given her ongoing drowsiness and fatigue discussed doing for further observation so the fact she had multiple these episodes today. She very much was in agreement wish to stay. Hospitalist team contacted. DIAGNOSIS: Seizure-like activity, headache DISPOSITION: Hospitalist will evaluate Patient was agreeable with this plan. Past Med/Surg History Problem List (Updated 07/01/24 @ 18:14 by Riky Harding M.D.) Weak (Acute) Nausea (Acute) Headache (Acute) Seizure-like activity (Acute) Seizure disorder Complicated UTI (urinary tract infection) Marijuana use Asthma Nausea and vomiting History of seizure Pyelonephritis (Acute) Elevated troponin (Acute) Acute hypokalemia (Acute) Elevated glucose level Leukocytosis Altered mental status Headache (Acute) Nausea (Acute) Amnesia (Acute) Ovarian cyst (Acute) Contusion of face (Acute) Medical History Asthma History of seizure Surgical History History of tonsillectomy Previous section Family History Other Breast cancer Diabetes Hypertension Stroke Social History Smoking Status: Former smoker Tobacco Type: Cigarettes Do You Dip or Chew Tobacco: No; Hx Alcohol Use: No Hx Substance Use: Yes Non-Prescribed Medications: Marijuana Preferred Language: Belarusian Communication Ability: Effective Hvac/R Instructor Required: No Beliefs That Will Affect Care: None Current Living Situation: Other Current Living Situation Comment: living with a friend Feels Safe at Home: Yes Assistive Devices: None Allergies Allergies Allergy/AdvReac Type Severity Reaction Status Date / Time No Known Allergies Allergy Verified 07/01/24 16:40 Home Meds Home Medications Medication Instructions Recorded Confirmed No Known Home Medications 07/01/24 07/01/24 Results & Data (ED) Vital Signs Vital Signs - 24 hr 07/01/24 13:04 07/01/24 13:04 07/01/24 13:06 Temperature 37.0 C 37.0 C Temperature Source Oral Oral Pulse Rate 85 Pulse Rate [Apical] 95 H Pulse Rhythm [Apical] Pulse Strength [Apical] Respiratory Rate 21 18 Respiratory Effort / Characteristics Respiratory Depth Respiratory Pattern Blood Pressure 137/84 Blood Pressure [Right Arm] 137/84 Blood Pressure Mean 101 Blood Pressure Mean [Right Arm] 101 Blood Pressure Position [Right Arm] Pulse Oximetry 94 94 95 Oxygen Delivery Method Room Air Room Air Room Air Sepsis Recent Fever Within 48 Hours No Sepsis New/Unexplained Change in Mental Status N/A Sepsis Action Taken by Nursing No Action Required 07/01/24 13:10 07/01/24 15:00 07/01/24 17:00 Temperature Temperature Source Pulse Rate 79 Pulse Rate [Apical] 86 82 Pulse Rhythm [Apical] Regular Regular Pulse Strength [Apical] Normal Normal Respiratory Rate 18 18 Respiratory Effort / Characteristics Non-Labored Non-Labored Respiratory Depth Normal Normal Respiratory Pattern Regular Regular Blood Pressure Blood Pressure [Right Arm] 137/94 153/78 H Blood Pressure Mean Blood Pressure Mean [Right Arm] 108 103 Blood Pressure Position [Right Arm] Lying Pulse Oximetry 96 96 Oxygen Delivery Method Room Air Room Air Sepsis Recent Fever Within 48 Hours Sepsis New/Unexplained Change in Mental Status Sepsis Action Taken by Nursing 07/01/24 17:23 Temperature Temperature Source Pulse Rate 80 Pulse Rate [Apical] Pulse Rhythm [Apical] Pulse Strength [Apical] Respiratory Rate Respiratory Effort / Characteristics Respiratory Depth Respiratory Pattern Blood Pressure Blood Pressure [Right Arm] Blood Pressure Mean Blood Pressure Mean [Right Arm] Blood Pressure Position [Right Arm] Pulse Oximetry Oxygen Delivery Method Sepsis Recent Fever Within 48 Hours Sepsis New/Unexplained Change in Mental Status Sepsis Action Taken by Nursing Laboratory Data 07/01/24 13:10 07/01/24 13:10 Lab Results 07/01/24 07/01/24 07/01/24 Range/Units 13:10 14:06 16:07 WBC 15.03 H (4.8-10.8) K/ul RBC 5.00 (4.20-5.40) M/uL Hgb 14.8 (12.0-16.0) g/dl Hct 43.0 (37.0-47.0) % MCV 86.0 (80.0-100.0) fL MCH 29.6 (25.0-34.0) pg MCHC 34.4 (32.0-36.0) g/dL RDW Std Deviation 39.8 (36.4-46.3) fL RDW Coeff of Juliana 12.7 (11.5-14.5) % Plt Count 282 (130-400) K/uL MPV 11.3 (9.4-12.4) fL Immature Gran % (Auto) 0.3 % Neut % (Auto) 89.8 % Lymph % (Auto) 5.9 % [place] % (Auto) 3.7 % Eos % (Auto) 0.1 % Baso % (Auto) 0.2 % Neut # (Auto) 13.50 H (1.40-6.50) K/uL Lymph # (Auto) 0.89 L (1.20-3.40) K/uL [place] # (Auto) 0.55 (0.11-0.59) K/uL Eos # (Auto) 0.02 (0.00-0.50) K/uL Baso # (Auto) 0.03 (0.00-0.20) K/uL Immature Gran # (Auto) 0.04 (0.01-0.20) K/uL PT 10.6 (9.0-12.0) Seconds INR 1.0 (0.9-1.1) APTT 24 (21-31) Seconds PTT Ratio 0.9 Sodium 139 (136-145) mmol/L Potassium 3.2 L (3.5-5.1) mmol/L Chloride 100 (98-107) mmol/L Carbon Dioxide 28 (21-32) mmol/L Anion Gap 11 (3-11) BUN 17 (6-23) mg/dl Creatinine 0.73 (0.6-1.2) mg/dl Est Cr Clr Drug Dosing 94.1 ml/min eGFR 96.46 BUN/Creatinine Ratio 23.3 H (10-20) Glucose 146 H (70-99(Fasting)) mg/dl Calcium 9.8 (8.6-10.3) mg/dl Magnesium 1.7 (1.7-2.4) mg/dl Total Bilirubin 0.6 (0.2-1.0) mg/dl AST 18 (13-39) U/L ALT 10 (7-52) U/L Alkaline Phosphatase 61 (34-104) U/L Total Creatine Kinase 258 H (26-192) U/L Troponin I High Sens 13.0 (0-14) pg/ml Total Protein 7.6 (6.0-8.3) gm/dl Albumin 4.8 (3.4-5.0) gm/dl Globulin 2.8 (2.5-4.0) gm/dl Albumin/Globulin Ratio 1.7 (0.9-2) Lipase 5 L (11-82) U/L Procalcitonin 0.03 (0-0.5) ng/ml TSH 1.368 (0.300-4.500) uIu/ml Urine Color Yellow Urine Appearance Clear (Clear) Urine pH 8.5 H (4.5-7.5) Ur Specific [place] 1.022 (1.000-1.030) Urine Protein 1+ H (Negative) Urine Glucose (UA) Negative (Negative) Urine Ketones 1+ H (Negative) Urine Blood Negative (Negative) Urine Nitrite Negative (Negative) Urine Bilirubin Negative (Negative) Urine Urobilinogen Negative (Negative) Ur Leukocyte Esterase Negative (Negative) Urine WBC (Auto) 0-5 (0-5) /hpf Urine RBC (Auto) 0-2 (0-2) /hpf U Hyaline Cast (Auto) 0-2 (0-2) /lpf U Epithel Cells (Auto) 0-2 (0-2) /hpf Urine Bacteria (Auto) None Seen (None Seen) Adenovirus (PCR) Not Detected (NotDetected) B. pertussis DNA (PCR) Not Detected (NotDetected) B.parapertussis DNA PCR Not Detected (NotDetected) C. pneumoniae DNA (PCR) Not Detected (NotDetected) Coronavirus OC43 (PCR) Not Detected (NotDetected) Coronavirus HKU1 (PCR) Not Detected (NotDetected) Coronavirus 229E (PCR) Not Detected (NotDetected) SARS-CoV-2 (PCR) Not Detected (NotDetected) Coronavirus NL63 (PCR) Not Detected (NotDetected) Human Metapneumovir PCR Not Detected (NotDetected) Influenza Type A (PCR) Not Detected (NotDetected) Influenza Type B (PCR) Not Detected (NotDetected) M. pneumoniae (PCR) Not Detected (NotDetected) Parainfluenza 1 (PCR) Not Detected (NotDetected) Parainfluenza 2 (PCR) Not Detected (NotDetected) Parainfluenza 3 (PCR) Not Detected (NotDetected) Parainfluenza 4 (PCR) Not Detected (NotDetected) RSV (PCR) Not Detected (NotDetected) Entero/Rhino (PCR) Not Detected (NotDetected) Administered Medications Acetaminophen (Ofirmev) 1,000 mg in 100 mls @ 400 mls/hr IV Q8H PRN PRN Reason: Headache Stop: 07/04/24 17:32 Last Infusion: 07/01/24 17:58 Dose: Infused Documented By: Admin: 07/01/24 17:41 Dose: 400 mls/hr Documented By: VIKASH Sodium Chloride (Nss) 1,000 mls @ 125 mls/hr IV .Q8H BEN Stop: 07/02/24 17:44 Last Admin: 07/01/24 18:04 Dose: 125 mls/hr Documented By: VIKASH Ondansetron HCl (Ondansetron Inj 2 Mg/Ml 2 Ml Vial) 4 mg IV Q4H PRN PRN Reason: Nausea Stop: 07/31/24 17:32 Last Admin: 07/01/24 17:42 Dose: 4 mg Documented By: VIKASH Discontinued Medications Acetaminophen (Acetaminophen 500 Mg Tab) 1,000 mg PO NOW STA Stop: 07/01/24 14:09 Last Admin: 07/01/24 14:16 Dose: 1,000 mg Documented By: SHENG Sodium Chloride (Nss) 500 mls @ 999 mls/hr IV .Q31M ONE Stop: 07/01/24 14:38 Last Infusion: 07/01/24 15:11 Dose: Infused Documented By: Admin: 07/01/24 14:17 Dose: 999 mls/hr Documented By: SHENG Imaging Data Radiologist's Impression: Head CT 07/01/24 14:08 EXAM: CT Head Without Intravenous Contrast INDICATION: Seizure. TECHNIQUE: Axial computed tomography images of the head/brain without intravenous contrast. Sagittal and/or coronal reformats are provided. Sagittal and coronal reformatted images were created and reviewed. This CT exam was performed using one or more of the following dose reduction techniques: automated exposure control, adjustment of the mA and/or kV according to patient size, and/or use of iterative reconstruction technique. COMPARISON: MRI 10/09/2022 FINDINGS: Limitations: None. Brain and extra-axial spaces: No abnormality noted. No hemorrhage. No significant white matter disease. No edema. No ventriculomegaly. Bones/joints: No acute changes. Soft tissues: No significant abnormality noted. Vasculature: No acute abnormality noted. Sinuses: No layering fluid in the visualized portions of the paranasal sinuses. Mastoid air cells: No mastoid effusion. Orbits: No significant abnormality noted. IMPRESSION: No abnormality noted. ACT 112: Negative or not required by law. Electronically signed by Sonal Seth 07-01-2024 2:52 PM Chest X-Ray 07/01/24 14:15 EXAM: Radiograph of the Chest 1 View INDICATION: Seizure. Chills. TECHNIQUE: Frontal view of the chest. COMPARISON: 10/09/2022 FINDINGS: Lungs and pleural spaces: No consolidation or pulmonary edema. No pleural effusion or pneumothorax. Heart: Shape and configuration within normal limits allowing for technique. Mediastinum: Normal contour. Bones/joints: No fracture, erosion or dislocation. Soft tissues: No abnormality noted. No radiopaque foreign body noted. Upper abdomen: Air in the stomach noted subjacent to the left diaphragm. IMPRESSION: No acute cardiopulmonary disease. ACT 112: Negative or not required by law. Electronically signed by Sonal Seth 07-01-2024 2:54 PM Discharge Plan Visit Data Chief Complaint: Seizure ED Provider: Riky Harding Discharge Problem: Seizure-like activity, Headache, Nausea, Weak Patient Disposition: Being Evaluated by Hospitalist Forms Stand Alone Forms: [employer] Prescriptions Prescriptions: No Action No Known Home Medications Referrals Referrals: PCP,NO [Primary Care Provider] -
[2024-07-01 14:15] LABS: Basophils # (auto) 0.03 K/uL (0.00-0.20); Basophils % (auto) 0.2 %; Eosinophils # (auto) 0.02 K/uL (0.00-0.50); Eosinophils % (auto) 0.1 %; Hemoglobin 14.8 g/dl (12.0-16.0); Immature Granulocytes # (auto) 0.04 K/uL (0.01-0.20); Immature Granulocytes % (auto) 0.3 %; Lymphocytes # (auto) 0.89 K/uL (1.20-3.40); Lymphocytes % (auto) 5.9 %; Mean Corpuscular Hemoglobin 29.6 pg (25.0-34.0); Mean Corpuscular Hgb Conc 34.4 g/dL (32.0-36.0); Mean Platelet Volume 11.3 fL (9.4-12.4); Monocytes # (auto) 0.55 K/uL (0.11-0.59); Monocytes % (auto) 3.7 %; Neutrophils % (auto) 89.8 %; Platelet Count 282 K/uL (130-400); RDW Coefficient of Variation 12.7 % (11.5-14.5); RDW Standard Deviation 39.8 fL (36.4-46.3); White Blood Count 15.03 K/ul (4.8-10.8)
[2024-07-01] MEDS: ACETAMINOPHEN 500 MG TAB PO STA (14:16)
[2024-07-01] MEDS: SODIUM CHLORIDE 0.9% 500 ML IV ONE (14:17)
[2024-07-01 14:30] LABS: Albumin Level 4.8 gm/dl (3.4-5.0); Bilirubin,Total 0.6 mg/dl (0.2-1.0); Calcium 9.8 mg/dl (8.6-10.3); Magnesium 1.7 mg/dl (1.7-2.4); Potassium 3.2 mmol/L (3.5-5.1)
[2024-07-01 14:31] LABS: Partial Thromboplastin Ratio 0.9; Partial Thromboplastin Time 24 Seconds (21-31); Prothrombin Time 10.6 Seconds (9.0-12.0)
[2024-07-01 14:36] LABS: Albumin Globulin Ratio 1.7 (0.9-2); BUN Creatinine Ratio 23.3 (10-20); Creatinine Clr Calc Pharmacy 94.1 ml/min; Globulin 2.8 gm/dl (2.5-4.0); Total Protein 7.6 gm/dl (6.0-8.3)
[2024-07-01 14:50] LABS: Thyroid Stimulating Hormone 1.368 uIu/ml (0.300-4.500)
--- NOTE | 2024-07-01 14:53 | CT Scan Report ---
EXAM: CT Head Without Intravenous Contrast INDICATION: Seizure. TECHNIQUE: Axial computed tomography images of the head/brain without intravenous contrast. Sagittal and/or coronal reformats are provided. Sagittal and coronal reformatted images were created and reviewed. This CT exam was performed using one or more of the following dose reduction techniques: automated exposure control, adjustment of the mA and/or kV according to patient size, and/or use of iterative reconstruction technique. COMPARISON: MRI 10/09/2022 FINDINGS: Limitations: None. Brain and extra-axial spaces: No abnormality noted. No hemorrhage. No significant white matter disease. No edema. No ventriculomegaly. Bones/joints: No acute changes. Soft tissues: No significant abnormality noted. Vasculature: No acute abnormality noted. Sinuses: No layering fluid in the visualized portions of the paranasal sinuses. Mastoid air cells: No mastoid effusion. Orbits: No significant abnormality noted. IMPRESSION: No abnormality noted. ACT 112: Negative or not required by law. Electronically signed by Sonal Seth 07-01-2024 2:52 PM
--- NOTE | 2024-07-01 14:54 | XRay Report ---
EXAM: Radiograph of the Chest 1 View INDICATION: Seizure. Chills. TECHNIQUE: Frontal view of the chest. COMPARISON: 10/09/2022 FINDINGS: Lungs and pleural spaces: No consolidation or pulmonary edema. No pleural effusion or pneumothorax. Heart: Shape and configuration within normal limits allowing for technique. Mediastinum: Normal contour. Bones/joints: No fracture, erosion or dislocation. Soft tissues: No abnormality noted. No radiopaque foreign body noted. Upper abdomen: Air in the stomach noted subjacent to the left diaphragm. IMPRESSION: No acute cardiopulmonary disease. ACT 112: Negative or not required by law. Electronically signed by Sonal Seth 07-01-2024 2:54 PM
[2024-07-01 15:11] LABS: Adenovirus PCR Not Detected (NotDetected); Bordetella parapertussis PCR Not Detected (NotDetected); Bordetella pertussis PCR Not Detected (NotDetected); Chlamydia pneumoniae PCR Not Detected (NotDetected); Coronavirus 229E PCR Not Detected (NotDetected); Coronavirus CoV-2 (COVID19)PCR Not Detected (NotDetected); Coronavirus HKU1 PCR Not Detected (NotDetected); Coronavirus NL63 PCR Not Detected (NotDetected); Coronavirus OC43PCR Not Detected (NotDetected); Human Metapneumovirus PCR Not Detected (NotDetected); Influenza A PCR Not Detected (NotDetected); Influenza B PCR Not Detected (NotDetected); Mycoplasma pneumoniae PCR Not Detected (NotDetected); Parainfluenza Virus 1 PCR Not Detected (NotDetected); Parainfluenza Virus 2 PCR Not Detected (NotDetected); Parainfluenza Virus 3 PCR Not Detected (NotDetected); Parainfluenza Virus 4 PCR Not Detected (NotDetected); Respiratory Syncytial VirusPCR Not Detected (NotDetected); Rhinovirus/Enterovirus PCR Not Detected (NotDetected)
[2024-07-01 16:26] LABS: Appearance Urine Clear (Clear); Bacteria Urine Automated None Seen (None Seen); Bilirubin Urine Negative (Negative); Blood Urine Negative (Negative); Cast Urine Automated 0-2 /lpf (0-2); Color Urine Yellow; Epithelial Cell Urine Auto 0-2 /hpf (0-2); Glucose Urine UA Negative (Negative); Ketones Urine 1+ (Negative); Leukocyte Esterase Urine Negative (Negative); Nitrite Urine Negative (Negative); Protein Urine 1+ (Negative); RBC Urine Automated 0-2 /hpf (0-2); Specific Gravity Urine 1.022 (1.000-1.030); Urobilinogen Urine Negative (Negative); WBC Urine Automated 0-5 /hpf (0-5); pH Urine 8.5 (4.5-7.5)
--- NOTE | 2024-07-01 17:30 | History & Physical Report ---
Date of Service July 01, 2024 Assessment & Plan (1) Seizure disorder: Plan: #Seizure d/o, untreated #Nausea, abdominal discomfort likely 2/2 viral gastroenteritis vs. seizure aura/abdominal migraine -ativan 4mg Q4H prn as needed for seizure -will prophylax with keppra for now -neuro consult, consider alternative agent than keppra for long-term management, patient did not prefer keppra PO -tele, fall risk -close monitoring -MRI #Asthma -monitor IVF, diet SCDs, consider pharmacologic dvt PPX once MRI resulted History of Present Illness Primary Care Provider: NO PCP 54F pmh asthma, marijuana use, seizure d/o who presents with multiple seizures. Patient states that her first seizure was several years ago, at which time she presented to the hospital and was seen by neurology and started on keppra, which she did not like due to side effects. She did not have insurance at that time so she did not see neurology as an outpatient. She had had two episodes of seizures since then, associated with GI illnesses. Her seizures usually occur when she is sleeping and either her boyfriend or room mates notice because she thrashes around in her sleep. During this episode her presentation is similar to the above, as her boyfriend noticed her seizing in her sleep. Was noted by EMS to have 3 seizures in 30 minutes on the transport over to the hospital. On my evaluation patient denies focal weakness or numbness, but does endorse nausea and some fatigue and headache. Denies cp, palpitations, sob. Allergies Allergy/AdvReac Type Severity Reaction Status Date / Time No Known Allergies Allergy Verified 07/01/24 16:40 Home Medications Medication Instructions Recorded Confirmed Type No Known Home Medications 07/01/24 07/01/24 History Past Med/Surg History Problem List (Updated 07/01/24 @ 17:36 by Jacques Bui MD) Seizure disorder Complicated UTI (urinary tract infection) Marijuana use Asthma Nausea and vomiting History of seizure Pyelonephritis (Acute) Elevated troponin (Acute) Acute hypokalemia (Acute) Elevated glucose level Leukocytosis Altered mental status Headache (Acute) Nausea (Acute) Amnesia (Acute) Ovarian cyst (Acute) Contusion of face (Acute) Medical History Asthma History of seizure Surgical History History of tonsillectomy Previous section Family History Other Breast cancer Diabetes Hypertension Stroke Social History Smoking Status: Former smoker Tobacco Type: Cigarettes Do You Dip or Chew Tobacco: No; Hx Alcohol Use: No Hx Substance Use: Yes Non-Prescribed Medications: Marijuana Preferred Language: Welsh Communication Ability: Effective Automotive Sales Executive Required: No Beliefs That Will Affect Care: None Current Living Situation: Other Current Living Situation Comment: living with a friend Feels Safe at Home: Yes Assistive Devices: None Review of Systems Constitutional: + fatigue Neurologic: + seizure-like activity and + memory los s; no localized weakness, no loss of sensation, no numbness, no paresthesia, no abnormal movements, no dizziness, no syncope and no abnormal speech Physical Exam Constitutional: WD/WN, vitals as above Neurologic: normal touch/pain/proprioception, CN's II-XI intact bilaterally, moves all extremities and awake; no focal motor deficits and not confused Speech / Cognition: normal speech Motor/Sensory: normal movement and no sensory deficit Results & Data Results & Data Vital Signs (Past 12 Hours) Vital Signs Temp Pulse Pulse Resp BP BP Pulse Ox 07/01/24 17:23 80 07/01/24 15:00 86 18 137/94 96 07/01/24 13:10 79 07/01/24 13:06 37.0 C 85 18 137/84 95 07/01/24 13:04 37.0 C 95 H 21 137/84 94 07/01/24 13:04 94 O2 Del Method 07/01/24 17:23 07/01/24 15:00 Room Air 07/01/24 13:10 07/01/24 13:06 Room Air 07/01/24 13:04 Room Air 07/01/24 13:04 Room Air Laboratory Results Abnormal lab results 07/01/24 07/01/24 Range/Units 13:10 16:07 WBC 15.03 H (4.8-10.8) K/ul Neut # (Auto) 13.50 H (1.40-6.50) K/uL Lymph # (Auto) 0.89 L (1.20-3.40) K/uL Potassium 3.2 L (3.5-5.1) mmol/L BUN/Creatinine Ratio 23.3 H (10-20) Glucose 146 H (70-99(Fasting)) mg/dl Total Creatine Kinase 258 H (26-192) U/L Lipase 5 L (11-82) U/L Urine pH 8.5 H (4.5-7.5) Urine Protein 1+ H (Negative) Urine Ketones 1+ H (Negative) Diagnostic Findings Head CT 07/01/24 14:08 EXAM: CT Head Without Intravenous Contrast INDICATION: Seizure. TECHNIQUE: Axial computed tomography images of the head/brain without intravenous contrast. Sagittal and/or coronal reformats are provided. Sagittal and coronal reformatted images were created and reviewed. This CT exam was performed using one or more of the following dose reduction techniques: automated exposure control, adjustment of the mA and/or kV according to patient size, and/or use of iterative reconstruction technique. COMPARISON: MRI 10/09/2022 FINDINGS: Limitations: None. Brain and extra-axial spaces: No abnormality noted. No hemorrhage. No significant white matter disease. No edema. No ventriculomegaly. Bones/joints: No acute changes. Soft tissues: No significant abnormality noted. Vasculature: No acute abnormality noted. Sinuses: No layering fluid in the visualized portions of the paranasal sinuses. Mastoid air cells: No mastoid effusion. Orbits: No significant abnormality noted. IMPRESSION: No abnormality noted. ACT 112: Negative or not required by law. Electronically signed by Sonal Seth 07-01-2024 2:52 PM Chest X-Ray 07/01/24 14:15 EXAM: Radiograph of the Chest 1 View INDICATION: Seizure. Chills. TECHNIQUE: Frontal view of the chest. COMPARISON: 10/09/2022 FINDINGS: Lungs and pleural spaces: No consolidation or pulmonary edema. No pleural effusion or pneumothorax. Heart: Shape and configuration within normal limits allowing for technique. Mediastinum: Normal contour. Bones/joints: No fracture, erosion or dislocation. Soft tissues: No abnormality noted. No radiopaque foreign body noted. Upper abdomen: Air in the stomach noted subjacent to the left diaphragm. IMPRESSION: No acute cardiopulmonary disease. ACT 112: Negative or not required by law. Electronically signed by Sonal Seth 07-01-2024 2:54 PM
[2024-07-01] MEDS ORDERED: LORazepam 2 MG/1 ML VIAL IV PRN (17:41)
[2024-07-01] MEDS: ACETAMINOPHEN 1,000 MG/100 ML VIAL IV PRN (17:41)
[2024-07-01] MEDS: ONDANSETRON INJ 2 MG/ML 2 ML VIAL IV PRN (17:42)
[2024-07-01] MEDS: SODIUM CHLORIDE 0.9% 1,000 ML IV SCH (18:04)
--- NOTE | 2024-07-01 19:21 | Communication Note ---
Date of Service: July 01, 2024 EMR reviewed, patient presented after multiple witnessed events of generalized seizure like activity. There is leukocytosis noted and hypokalemia while serum sodium and magnesium are low end of normal limits. No reported trauma. Communicated directly with primary hospitalist team. Recommend continued infectious disease workup. Check tox screen. Continue to monitor renal and hepatic function and monitor elytes. Continue close monitoring provide seizure precautions, utilize benzodiazepines for any breakthrough clinical seizure like activity. Plan for MRI brain with and without contrast. Obtain EEG during this hospitalization. If initiating valproic acid recommend checking test/confirming possible status before initiating valproic acid. Recommend obtain LFTs and serum ammonia as baseline prior to initiating valproic acid. Communicated directly with primary/hospitalist team.
[2024-07-01] MEDS: levETIRAcetam 500 MG/5 ML VIAL IV SCH (20:40)
--- NOTE | 2024-07-02 07:43 | Magnetic Resonance Report ---
MR brain wo con HISTORY: 54 years-old Female seizures acute seizure-like activity COMPARISON: 10/09/2022 TECHNIQUE: Multiplanar multisequence MRI of the brain was obtained without IV contrast FINDINGS: No restricted diffusion to suggest acute or subacute infarct. Unremarkable midline structures. 7 mm p ineal gland cyst. Degenerative changes of the cervical spine. No acute intracranial hemorrhage, midli ne shift, abnormal extra-axial collection, hydrocephalus or intra-axial mass. No pathologic blooming artifact. Mild patchy T2/FLAIR hyperintense foci noted throughout the white matter. Mesial temporal l obes appear normal. No acute seizure focus, yang matter heterotopia or cortical dysplasia. Cerebral venous sinuses and major arterial flow voids appear patent. Skull, orbits and soft tissues a re unremarkable. IMPRESSION: 1. No acute intracranial abnormality, specifically there is no acute or subacute infarct. 2. Nonspecific mild patchy T2/FLAIR hyperintense foci throughout the white matter likely represents e carolyn chronic microvascular ischemic disease. ACT 112: Negative or not required by law. The above report was generated using voice recognition software. It may contain grammatical, syntax o r spelling errors. Electronically signed by: Angel Hasasn M.D. 07/02/2024 7:41 AM
[2024-07-02] MEDS ORDERED: LORazepam 2 MG/1 ML VIAL IV PRN (08:00)
[2024-07-02] MEDS: POTASSIUM CHLORIDE CRTAB 20 MEQ TABCR PO ONE (08:09)
[2024-07-02 08:39] LABS: Pregnancy Test, Urine Negative (Negative)
[2024-07-02 08:47] LABS: Hematocrit (blood only) 40.8 % (37.0-47.0); Hemoglobin 13.7 g/dl (12.0-16.0); Mean Corpuscular Hemoglobin 29.1 pg (25.0-34.0); Mean Corpuscular Hgb Conc 33.6 g/dL (32.0-36.0); Mean Corpuscular Volume 86.8 fL (80.0-100.0); Mean Platelet Volume 10.5 fL (9.4-12.4); Platelet Count 254 K/uL (130-400); RDW Coefficient of Variation 13.1 % (11.5-14.5); RDW Standard Deviation 41.6 fL (36.4-46.3); White Blood Count 12.07 K/ul (4.8-10.8)
[2024-07-02 09:03] LABS: BUN Creatinine Ratio 19.2 (10-20); Calcium 9.2 mg/dl (8.6-10.3); Creatinine Clr Calc Pharmacy 90.2 ml/min; Magnesium 1.6 mg/dl (1.7-2.4); Potassium 2.9 mmol/L (3.5-5.1)
[2024-07-02 09:09] LABS: Amphetamines+Metham, Urine Neg (Neg); Barbiturates, Urine Neg (Neg); Benzodiazepine, Urine Neg (Neg); Cocaine, Urine Pos (Neg); Fentanyl, Urine Neg (Neg); MDMA (Ecstacy), Urine Neg (Neg); Marijuana, Urine Pos (Neg); Methadone, Urine Neg (Neg); Opiate, Urine Neg (Neg); Phencyclidine, Urine Neg (Neg)
[2024-07-02] MEDS: MAGNESIUM SULFATE / D5W 1 GM/100 ML BAG IV SCH (09:31)
[2024-07-02] MEDS: POTASSIUM CHLORIDE / WTR 10 MEQ/100 ML PLCT IV SCH (09:31)
[2024-07-02] MEDS ORDERED: ALBUTEROL HFA 8 GM INHALER INH PRN (12:16)
--- NOTE | 2024-07-02 12:19 | Hospitalist Progress Note ---
Date of Service July 02, 2024 Assessment & Plan (1) Seizure disorder: Plan: Seizure disorder Breakthrough seizure Noncompliant/not on any antiseizure medications at home --MRI Brain: No acute intracranial abnormality, specifically there is no acute or subacute infarct. Nonspecific mild patchy T2/FLAIR hyperintense foci throughout the white matter likely represents early chronic microvascular ischemic disease. -Reports " brain fogginess" with Keppra use in the past -- Continue IV Keppra -- Seizure, aspiration precautions --Appreciate neurology input --Consult to avoid illicit drugs -- Needs follow-up with neurology on discharge -- IV Ativan as needed for seizures -- Patient willing to retry Keppra -- Patient to avoid driving until cleared by neurology Nausea, abdominal discomfort likely 2/2 viral gastroenteritis Resolved Monitor Consider stool studies if recurrence of diarrhea Hypokalemia Hypomagnesemia Likely due to GI losses Monitor and replete electrolytes as needed Leukocytosis Likely reactive No obvious signs of infection Monitor Drug abuse Tox screen positive for cocaine, THC Needs counselling Asthma ? Could have underlying COPD Currently no acute issues Advised to follow-up with pulmonology as outpatient for PFTs DVT Px: SCDs CODE STATUS Full code Admission and Anticipated Discharge Date Admission Date: July 01, 2024 Subjective Patient is seen and examined at bedside States having generalized body ache Nausea, vomiting, abdominal pain, diarrhea resolved Headache resolved as well Denies any chest pain, dyspnea, dizziness Review of Systems Review of Systems: All systems reviewed & are unremarkable except as noted in Subjective Physical Exam Physical Exam: Physical Exam: Vitals signs as noted above General Appearance:Moderately built and nourished, no apparent distress Head: normocephalic, Atraumatic Eyes: normal inspection, EOMI Neck: supple, Trachea midline Respiratory/Chest: Decreased breath sounds, CTA, No accessory muscle use Cardiovascular: S1, S2, No murmur Abdomen/GI:Soft, Non tender, Bowel sounds present Extremities/Musculoskeletal:normal inspection, no edema Neurologic/Psych:AAOX3, grossly no focal neurological deficits Skin: normal color, warm Results & Data Results & Data Vital Signs (Past 12 Hours) Vital Signs Temp Pulse Pulse Resp BP Pulse Ox O2 Del Method 07/02/24 11:51 36.7 C 80 18 117/90 95 Room Air 07/02/24 08:30 Room Air 07/02/24 08:00 36.8 C 72 19 184/82 H 96 Room Air 07/02/24 05:45 72 07/02/24 03:26 36.8 C 80 16 148/83 H 96 Room Air Laboratory Results Short CBC 07/01/24 07/02/24 Range/Units 13:10 08:30 WBC 15.03 H 12.07 H (4.8-10.8) K/ul Hgb 14.8 13.7 (12.0-16.0) g/dl Hct 43.0 40.8 (37.0-47.0) % Plt Count 282 254 (130-400) K/uL BMP 07/01/24 07/02/24 13:10 08:30 Sodium 139 141 Potassium 3.2 L 2.9 L Chloride 100 105 Carbon Dioxide 28 28 BUN 17 14 Creatinine 0.73 0.73 Glucose 146 H 119 H Calcium 9.8 9.2 Cardiac Enzymes 07/01/24 Range/Units 13:10 Total Creatine Kinase 258 H (26-192) U/L Liver Function 07/01/24 Range/Units 13:10 Total Bilirubin 0.6 (0.2-1.0) mg/dl AST 18 (13-39) U/L ALT 10 (7-52) U/L Alkaline Phosphatase 61 (34-104) U/L Albumin 4.8 (3.4-5.0) gm/dl Urine 07/01/24 Range/Units 16:07 Urine Color Yellow Urine Appearance Clear (Clear) Urine pH 8.5 H (4.5-7.5) Ur Specific [place] 1.022 (1.000-1.030) Urine Protein 1+ H (Negative) Urine Glucose (UA) Negative (Negative)
--- NOTE | 2024-07-02 12:43 | Neurology Consultation ---
Date of Consultation July 02, 2024 Assessment & Plan (1) Seizure-like activity: No driving per [place] state law following unprovoked seizure-communicated directly with primary/hospitalist team Recommend continued work up to include the following: Recommend obtain EEG Continue Keppra 500mg BID Provide seizure precautions Utilize benzodiazepines emergently for any breakthrough clinical seizure like activity Recommend obtain Echocardiogram as part of complete workup Continue frequent neurological assessments Obtain stat CT brain without contrast for any acute neurological decline Continue to monitor/control blood pressure & blood glucose Continue to monitor telemetry closely Continue to monitor renal and hepatic function, keep euvolemic Ok from neurology perspective for VTE prophylaxis PT/OT/SLT to eval and treat Consider overnight pulse oximetry monitoring Recommend eval for KANA and consider outpatient polysomnography Plan for continued outpatient follow up with neurology Telehealth Consultation Telehealth Information Telehealth Information: I performed this visit using a real-time telehealth connection between my location and the patients location ([facility]). After conne cting through interactive tele-video, patient was identified by name and date of and/or wristband check.Patient (or authorized healthcare union representative) was informed that this was a telemedicine visit and it was being conducted confidentially over secure lines. My office door was closed and no one else was present in the room with me.Patient (or authorized healthcare union representative) provided consent to proceed with the visit, expressed an understanding of privacy and security of the telemedicine visit, and gave permission to have a hospital union representative in the room in order to assist with the visit and to conduct portions of the visit, as needed. I informed the patient (or authorized healthcare union representative) that I reviewed their record and presented the opportunity for them to ask any questions regarding the visit today. The patient agreed to participate. History of Present Illness Reason for Consultation: Seizure Requesting Physician: Dr. Johnson Attending Physician: Ashok Johnson MD History of Present Illness 54yo female with hx of asthma uses THC (vaping) presented after report of multiple seizures. Patient denies recollection of events, she reports she felt fine when going to bed the night before. at bedside reports at 1am he heard some strange noises from her but she awoke and talked then went back to bed and at around 4am reports again hearing strange sounds and found her to be demonstrating generalized seizure like activity. Reports she was clinching her jaw, arms and legs stiff and neck extended with eyes upward gazing "rolled to the back of her head". No reported loss of bowels or bladder. No report of tongue biting. Patient and report [facility] sleep issues, will reported cough and wheeze and awaken overnight frequently per . I have performed televideo consultation. She is alert & oriented; able to answer all questions appropriately, name objects on televideo monitor, repeat phrases and perform complex/embedded commands without deficit. Neurological exam is non lateralizing/nonfocal in terms of motor strength and coordination. She is willing to retry Keppra. No reported SI/HI. We have discussed seizure precautions and no driving per [facility] law. Patient and are able to verbalize understanding of risk and benefits. They are agreeable to continued hospitalization/continued workup and planned outpatient follow up with neurology. Allergies Allergy/AdvReac Type Severity Reaction Status Date / Time No Known Allergies Allergy Verified 07/01/24 16:40 Home Medications Medication Instructions Recorded Confirmed Type No Known Home Medications 07/01/24 07/01/24 History Patient History Medical History Asthma History of seizure Surgical History History of tonsillectomy Previous section Family History Other Breast cancer Diabetes Hypertension Stroke Social History Smoking Status: Current every day smoker Tobacco Type: E-cigarettes / Vaping Do You Dip or Chew Tobacco: No; Hx Alcohol Use: No Hx Substance Use: Yes Non-Prescribed Medications: Marijuana Last Used Substance: Days (ago) Preferred Language: Hungarian Communication Ability: Effective Application Architect Manager Required: No Beliefs That Will Affect Care: None Current Living Situation: Significant Other Current Living Situation Comment: living with a friend Feels Safe at Home: Yes Safety Concerns: Feels Safe At This Time Assistive Devices: Denture - Upper and Glasses Physical Exam Neurological Examination: Mental Status: Awake and alert. Oriented to person, place, and time. Fluency naming repetition and comprehension appear grossly intact. Affect remains appropriate. CN testing: I: Deferred II:Reports no changes in visual acuity III/IV/: No evidence of gaze preference, hippus, nystagmus or roving eye movements V: Facial sensation reportedly grossly intact to light touch bilaterally VII: Facial movements appear without evidence of asymmetry VIII: Hearing appears grossly intact to loud voice bilaterally IX/X: Palate is unable to be accurately visualized via telemedicine XI: Shoulder shrug appears symmetric/ grossly intact bilaterally XII: Tongue protrudes midline without evidence of biting Motor exam: Strength appears grossly intact/symmetric in all extremities Sensory: Sensation is reportedly grossly intact throughout Coordination: No apparent evidence of dysmetria or dysdiadochokinesia Reflexes: Deferred Gait: Deferred Results & Data Vital Signs (Past 12 Hours) Vital Signs Temp Pulse Pulse Resp BP Pulse Ox O2 Del Method 07/02/24 11:51 36.7 C 80 18 117/90 95 Room Air 07/02/24 08:30 Room Air 07/02/24 08:00 36.8 C 72 19 184/82 H 96 Room Air 07/02/24 05:45 72 07/02/24 03:26 36.8 C 80 16 148/83 H 96 Room Air Laboratory Results Abnormal lab results 07/01/24 07/01/24 07/02/24 Range/Units 13:10 16:07 08:10 WBC 15.03 H (4.8-10.8) K/ul Neut # (Auto) 13.50 H (1.40-6.50) K/uL Lymph # (Auto) 0.89 L (1.20-3.40) K/uL Potassium 3.2 L (3.5-5.1) mmol/L BUN/Creatinine Ratio 23.3 H (10-20) Glucose 146 H (70-99(Fasting)) mg/dl Magnesium (1.7-2.4) mg/dl Ammonia (18-72) umol/L Total Creatine Kinase 258 H (26-192) U/L Lipase 5 L (11-82) U/L Urine pH 8.5 H (4.5-7.5) Urine Protein 1+ H (Negative) Urine Ketones 1+ H (Negative) Ur Cocaine Metabolite Pos H (Neg) U Marijuana (THC) Screen Pos H (Neg) 07/02/24 Range/Units 08:30 WBC 12.07 H (4.8-10.8) K/ul Neut # (Auto) (1.40-6.50) K/uL Lymph # (Auto) (1.20-3.40) K/uL Potassium 2.9 L (3.5-5.1) mmol/L BUN/Creatinine Ratio (10-20) Glucose 119 H (70-99(Fasting)) mg/dl Magnesium 1.6 L (1.7-2.4) mg/dl Ammonia 16.0 L (18-72) umol/L Total Creatine Kinase (26-192) U/L Lipase (11-82) U/L Urine pH (4.5-7.5) Urine Protein (Negative) Urine Ketones (Negative) Ur Cocaine Metabolite (Neg) U Marijuana (THC) Screen (Neg) Diagnostic Findings Head CT 07/01/24 14:08 EXAM: CT Head Without Intravenous Contrast INDICATION: Seizure. TECHNIQUE: Axial computed tomography images of the head/brain without intravenous contrast. Sagittal and/or coronal reformats are provided. Sagittal and coronal reformatted images were created and reviewed. This CT exam was performed using one or more of the following dose reduction techniques: automated exposure control, adjustment of the mA and/or kV according to patient size, and/or use of iterative reconstruction technique. COMPARISON: MRI 10/09/2022 FINDINGS: Limitations: None. Brain and extra-axial spaces: No abnormality noted. No hemorrhage. No significant white matter disease. No edema. No ventriculomegaly. Bones/joints: No acute changes. Soft tissues: No significant abnormality noted. Vasculature: No acute abnormality noted. Sinuses: No layering fluid in the visualized portions of the paranasal sinuses. Mastoid air cells: No mastoid effusion. Orbits: No significant abnormality noted. IMPRESSION: No abnormality noted. ACT 112: Negative or not required by law. Electronically signed by Sonal Seth 07-01-2024 2:52 PM Chest X-Ray 07/01/24 14:15 EXAM: Radiograph of the Chest 1 View INDICATION: Seizure. Chills. TECHNIQUE: Frontal view of the chest. COMPARISON: 10/09/2022 FINDINGS: Lungs and pleural spaces: No consolidation or pulmonary edema. No pleural effusion or pneumothorax. Heart: Shape and configuration within normal limits allowing for technique. Mediastinum: Normal contour. Bones/joints: No fracture, erosion or dislocation. Soft tissues: No abnormality noted. No radiopaque foreign body noted. Upper abdomen: Air in the stomach noted subjacent to the left diaphragm. IMPRESSION: No acute cardiopulmonary disease. ACT 112: Negative or not required by law. Electronically signed by Sonal Seth 07-01-2024 2:54 PM Brain MRI 07/01/24 17:44 MR brain wo con HISTORY: 54 years-old Female seizures acute seizure-like activity COMPARISON: 10/09/2022 TECHNIQUE: Multiplanar multisequence MRI of the brain was obtained without IV contrast FINDINGS: No restricted diffusion to suggest acute or subacute infarct. Unremarkable midline structures. 7 mm pineal gland cyst. Degenerative changes of the cervical spine. No acute intracranial hemorrhage, midline shift, abnormal extra-axial collection, hydrocephalus or intra-axial mass. No pathologic blooming artifact. Mild patchy T2/FLAIR hyperintense foci noted throughout the white matter. Mesial temporal lobes appear normal. No acute seizure focus, yang matter heterotopia or cortical dysplasia. Cerebral venous sinuses and major arterial flow voids appear patent. Skull, orbits and soft tissues are unremarkable. IMPRESSION: 1. No acute intracranial abnormality, specifically there is no acute or subacute infarct. 2. Nonspecific mild patchy T2/FLAIR hyperintense foci throughout the white matter likely represents early chronic microvascular ischemic disease. ACT 112: Negative or not required by law. The above report was generated using voice recognition software. It may contain grammatical, syntax or spelling errors. Electronically signed by: Angel Hassan M.D. 07/02/2024 7:41 AM Medications Administered Home Medications Medication Instructions Recorded Confirmed Last Taken No Known Home Medications 07/01/24 07/01/24 Unknown Active Medications Generic Name Dose Route Start Last Admin Trade Name Freq PRN Reason Stop Dose Admin Acetaminophen 1,000 mg in 100 mls @ 400 mls/hr 07/01/24 17:33 07/02/24 05:26 Ofirmev IV 07/04/24 17:32 Infused Q8H PRN Infusion Headache Sodium Chloride 1,000 mls @ 75 mls/hr 07/01/24 17:45 07/02/24 11:45 Nss IV 07/02/24 17:44 75 mls/hr .[id number] BEN Infusion Magnesium Sulfate/Dextrose 1 gm in 100 mls @ 50 mls/hr 07/02/24 09:30 07/02/24 11:03 Magnesium Sulfate / D5w IV 07/02/24 13:29 50 mls/hr Q2H BEN Administration Levetiracetam 500 mg 07/01/24 20:00 07/02/24 08:09 Levetiracetam 500 Mg/5 Ml Vial IV 07/31/24 19:59 500 mg Q12H BEN Administration Ondansetron HCl 4 mg 07/01/24 17:33 07/01/24 17:42 Ondansetron Inj 2 Mg/Ml 2 Ml Vial IV 07/31/24 17:32 4 mg Q4H PRN Administration Nausea
[2024-07-02] MEDS: POTASSIUM CHLORIDE CRTAB 20 MEQ TABCR PO SCH (20:54)
[2024-07-03] MEDS: MAGNESIUM CHLORIDE W/CALCIUM 64MG DELAYED REL TAB PO SCH ×2 (08:07→20:36)
[2024-07-03] MEDS ORDERED: POTASSIUM CHLORIDE / WTR 10 MEQ/100 ML PLCT IV SCH (08:45)
[2024-07-03] MEDS ORDERED: MAGNESIUM SULFATE / D5W 1 GM/100 ML BAG IV SCH (08:45)
[2024-07-03 09:12] LABS: Mean Corpuscular Hemoglobin 29.1 pg (25.0-34.0); Mean Corpuscular Hgb Conc 33.3 g/dL (32.0-36.0); Mean Corpuscular Volume 87.3 fL (80.0-100.0); Mean Platelet Volume 11.3 fL (9.4-12.4); Platelet Count 246 K/uL (130-400); RDW Coefficient of Variation 13.2 % (11.5-14.5); RDW Standard Deviation 41.7 fL (36.4-46.3); Red Blood Count 4.81 M/uL (4.20-5.40); White Blood Count 8.55 K/ul (4.8-10.8)
[2024-07-03 09:19] LABS: Albumin Level 4.1 gm/dl (3.4-5.0); BUN Creatinine Ratio 15.5 (10-20); Bilirubin Direct 0.1 mg/dl (0-0.2); Bilirubin,Total 0.6 mg/dl (0.2-1.0); Calcium 9.5 mg/dl (8.6-10.3); Creatinine Clr Calc Pharmacy 82.8 ml/min; Magnesium 1.7 mg/dl (1.7-2.4); Potassium 3.5 mmol/L (3.5-5.1); Total Protein 6.7 gm/dl (6.0-8.3)
[2024-07-03] MEDS: LOSARTAN POTASSIUM 25 MG TAB PO SCH (10:14)
[2024-07-03] MEDS: PROMETHAZINE 6.25 MG/50.25 ML BAG IV ONE (11:00)
[2024-07-03] MEDS ORDERED: hydrALAZINE HCL 20 MG/ML VIAL IV PRN (12:15)
--- NOTE | 2024-07-03 14:13 | Hospitalist Progress Note ---
Date of Service July 03, 2024 Assessment & Plan (1) Seizure disorder: Plan: Seizure disorder Breakthrough seizure Noncompliant/not on any antiseizure medications at home --MRI Brain: No acute intracranial abnormality, specifically there is no acute or subacute infarct. Nonspecific mild patchy T2/FLAIR hyperintense foci throughout the white matter likely represents early chronic microvascular ischemic disease. -Reports " brain fogginess" with Keppra use in the past -- Continue IV Keppra -- Seizure, aspiration precautions --Appreciate neurology input --Consult to avoid illicit drugs -- Needs follow-up with neurology on discharge -- IV Ativan as needed for seizures -- Patient willing to retry Keppra -- Patient advised to to avoid driving until cleared by neurology -- Transition to oral Keppra once nausea, vomiting improves Nausea, abdominal discomfort likely 2/2 viral gastroenteritis Resolved Monitor Consider stool studies if recurrence of diarrhea Hypokalemia Hypomagnesemia Likely due to GI losses Monitor and replete electrolytes as needed Hypertension Started low-dose losartan IV hydralazine as needed Monitor and adjust medications as needed Leukocytosis Likely reactive No obvious signs of infection Monitor Drug abuse Tox screen positive for cocaine, THC Needs counselling Asthma ? Could have underlying COPD Currently no acute issues Advised to follow-up with pulmonology as outpatient for PFTs DVT Px: SCDs CODE STATUS Full code Admission and Anticipated Discharge Date Admission Date: July 01, 2024 Subjective Patient is seen and examined at bedside States having nausea associated with vomiting today No seizure activity since hospitalization Patient offers no other complaints Denies any chest pain, dyspnea, abdominal pain Review of Systems Review of Systems: All systems reviewed & are unremarkable except as noted in Subjective Physical Exam Physical Exam: Physical Exam: Vitals signs as noted above General Appearance:Moderately built and nourished, no apparent distress Head: normocephalic, Atraumatic Eyes: normal inspection, EOMI Neck: supple, Trachea midline Respiratory/Chest: Decreased breath sounds, CTA, No accessory muscle use Cardiovascular: S1, S2, No murmur Abdomen/GI:Soft, Non tender, Bowel sounds present Extremities/Musculoskeletal:normal inspection, no edema Neurologic/Psych:AAOX3, grossly no focal neurological deficits Skin: normal color, warm Results & Data Results & Data Vital Signs (Past 12 Hours) Vital Signs Temp Pulse Resp BP BP Pulse Ox O2 Del Method 07/03/24 11:48 36.8 C 67 18 199/95 H 171/98 H 95 Room Air 07/03/24 08:30 36.9 C 64 19 184/96 H 97 Room Air 07/03/24 03:01 36.6 C 71 18 163/89 H 99 Room Air Laboratory Results Short CBC 07/03/24 Range/Units 08:07 WBC 8.55 (4.8-10.8) K/ul Hgb 14.0 (12.0-16.0) g/dl Hct 42.0 (37.0-47.0) % Plt Count 246 (130-400) K/uL BMP 07/03/24 08:07 Sodium 142 Potassium 3.5 D Chloride 104 Carbon Dioxide 29 BUN 11 Creatinine 0.71 Glucose 118 H Calcium 9.5 Liver Function 07/03/24 Range/Units 08:07 Total Bilirubin 0.6 (0.2-1.0) mg/dl Direct Bilirubin 0.1 (0-0.2) mg/dl AST 20 (13-39) U/L ALT 11 (7-52) U/L Alkaline Phosphatase 49 (34-104) U/L Albumin 4.1 (3.4-5.0) gm/dl
[2024-07-03] MEDS: POTASSIUM CHLORIDE CRTAB 20 MEQ TABCR PO SCH ×2 (14:14→20:35)
[2024-07-03] MEDS ORDERED: MAGNESIUM CHLORIDE W/CALCIUM 64MG DELAYED REL TAB PO SCH (21:00)
[2024-07-04 06:51] LABS: Calcium 9.6 mg/dl (8.6-10.3); Creatinine Clr Calc Pharmacy 78.4 ml/min; Magnesium 1.7 mg/dl (1.7-2.4); Potassium 4.4 mmol/L (3.5-5.1)
[2024-07-04 07:32] VITALS: TEMP 98.1
[2024-07-04 11:38] VITALS: BP 123/81; PULSE 66; RESP 17; O2SAT 98
--- NOTE | 2024-07-04 11:53 | Hospitalist Progress Note ---
Date of Service July 04, 2024 Assessment & Plan (1) Seizure disorder: Plan: Seizure disorder Breakthrough seizure Noncompliant/not on any antiseizure medications at home --MRI Brain: No acute intracranial abnormality, specifically there is no acute or subacute infarct. Nonspecific mild patchy T2/FLAIR hyperintense foci throughout the white matter likely represents early chronic microvascular ischemic disease. -Reports " brain fogginess" with Keppra use in the past -- Continue IV Keppra -- Seizure, aspiration precautions --Appreciate neurology input --Consult to avoid illicit drugs -- Needs follow-up with neurology on discharge -- IV Ativan as needed for seizures -- Tolerated Keppra -- Patient advised to to avoid driving until cleared by neurology --Plan to discharge home today Nausea, abdominal discomfort likely 2/2 viral gastroenteritis Resolved Monitor Consider stool studies if recurrence of diarrhea Hypokalemia Hypomagnesemia Likely due to GI losses Monitor and replete electrolytes as needed Hypertension Started low-dose losartan IV hydralazine as needed Monitor and adjust medications as needed Leukocytosis Likely reactive No obvious signs of infection Monitor Resolved Drug abuse Tox screen positive for cocaine, THC Needs counselling Asthma ? Could have underlying COPD Currently no acute issues Advised to follow-up with pulmonology as outpatient for PFTs DVT Px: SCDs CODE STATUS Full code Admission and Anticipated Discharge Date Admission Date: July 01, 2024 Subjective Patient is seen and examined at bedside Patient well today Nausea, vomiting resolved No seizure activity since hospitalization No other complaints Denies any chest pain, dyspnea, abdominal pain Plan to be discharged home today Review of Systems Review of Systems: All systems reviewed & are unremarkable except as noted in Subjective Physical Exam Physical Exam: Physical Exam: Vitals signs as noted above General Appearance:Moderately built and nourished, no apparent distress Head: normocephalic, Atraumatic Eyes: normal inspection, EOMI Neck: supple, Trachea midline Respiratory/Chest: Decreased breath sounds, CTA, No accessory muscle use Cardiovascular: S1, S2, No murmur Abdomen/GI:Soft, Non tender, Bowel sounds present Extremities/Musculoskeletal:normal inspection, no edema Neurologic/Psych:AAOX3, grossly no focal neurological deficits Skin: normal color, warm Results & Data Results & Data Vital Signs (Past 12 Hours) Vital Signs Temp Pulse Pulse Resp BP Pulse Ox O2 Del Method 07/04/24 11:37 36.7 C 66 17 123/81 98 Room Air 07/04/24 07:31 36.7 C 65 20 143/82 H 93 Room Air 07/04/24 07:19 66 07/04/24 02:50 36.5 C 68 18 120/72 97 Room Air Laboratory Results [facility] 07/04/24 05:55 Sodium 141 Potassium 4.4 D Chloride 106 Carbon Dioxide 29 BUN 12 Creatinine 0.75 Glucose 105 H Calcium 9.6
--- NOTE | 2024-07-04 11:56 | Discharge Summary ---
Date of Service July 04, 2024 Admission HPI Per Admitting Provider 54F pmh asthma, marijuana use, seizure d/o who presents with multiple seizures. Patient states that her first seizure was several years ago, at which time she presented to the hospital and was seen by neurology and started on keppra, which she did not like due to side effects. She did not have insurance at that time so she did not see neurology as an outpatient. She had had two episodes of seizures since then, associated with GI illnesses. Her seizures usually occur when she is sleeping and either her boyfriend or room mates notice because she thrashes around in her sleep. During this episode her presentation is similar to the above, as her boyfriend noticed her seizing in her sleep. Was noted by EMS to have 3 seizures in 30 minutes on the transport over to the hospital. On my evaluation patient denies focal weakness or numbness, but does endorse nausea and some fatigue and headache. Denies cp, palpitations, sob. Admission Exam Per Admitting Provider Constitutional: WD/WN, vitals as above Neurologic: normal touch/pain/proprioception, CN's II-XI intact bilaterally, moves all extremities and awake; no focal motor deficits and not confused Speech / Cognition: normal speech Motor/Sensory: normal movement and no sensory deficit Principal Diagnosis Seizure disorder Hypertension Drug abuse Discharge Data Allergies Allergy/AdvReac Type Severity Reaction Status Date / Time No Known Allergies Allergy Verified 07/01/24 16:40 Consultations 07/01/24 17:04 ED Decision to Admit Stat 07/01/24 17:40 Consult Neurology Routine Procedures Performed Laboratory Results WBC 8.55 K/ul (4.8-10.8) 07/03/24 08:07 RBC 4.81 M/uL (4.20-5.40) 07/03/24 08:07 Hgb 14.0 g/dl (12.0-16.0) 07/03/24 08:07 Hct 42.0 % (37.0-47.0) 07/03/24 08:07 MCV 87.3 fL (80.0-100.0) 07/03/24 08:07 MCH 29.1 pg (25.0-34.0) 07/03/24 08:07 MCHC 33.3 g/dL (32.0-36.0) 07/03/24 08:07 RDW Std Deviation 41.7 fL (36.4-46.3) 07/03/24 08:07 RDW Coeff of Juliana 13.2 % (11.5-14.5) 07/03/24 08:07 Plt Count 246 K/uL (130-400) 07/03/24 08:07 MPV 11.3 fL (9.4-12.4) 07/03/24 08:07 Immature Gran % (Auto) 0.3 % 07/01/24 13:10 Neut % (Auto) 89.8 % 07/01/24 13:10 Lymph % (Auto) 5.9 % 07/01/24 13:10 [place] % (Auto) 3.7 % 07/01/24 13:10 Eos % (Auto) 0.1 % 07/01/24 13:10 Baso % (Auto) 0.2 % 07/01/24 13:10 Neut # (Auto) 13.50 K/uL (1.40-6.50) H 07/01/24 13:10 Lymph # (Auto) 0.89 K/uL (1.20-3.40) L 07/01/24 13:10 [place] # (Auto) 0.55 K/uL (0.11-0.59) 07/01/24 13:10 Eos # (Auto) 0.02 K/uL (0.00-0.50) 07/01/24 13:10 Baso # (Auto) 0.03 K/uL (0.00-0.20) 07/01/24 13:10 Immature Gran # (Auto) 0.04 K/uL (0.01-0.20) 07/01/24 13:10 PT 10.6 Seconds (9.0-12.0) 07/01/24 13:10 INR 1.0 (0.9-1.1) 07/01/24 13:10 APTT 24 Seconds (21-31) 07/01/24 13:10 PTT Ratio 0.9 07/01/24 13:10 Sodium 141 mmol/L (136-145) 07/04/24 05:55 Potassium 4.4 mmol/L (3.5-5.1) D 07/04/24 05:55 Chloride 106 mmol/L (98-107) 07/04/24 05:55 Carbon Dioxide 29 mmol/L (21-32) 07/04/24 05:55 Anion Gap 6 (3-11) 07/04/24 05:55 BUN 12 mg/dl (6-23) 07/04/24 05:55 Creatinine 0.75 mg/dl (0.6-1.2) 07/04/24 05:55 Est Cr Clr Drug Dosing 78.4 ml/min 07/04/24 05:55 eGFR 93.38 07/04/24 05:55 BUN/Creatinine Ratio 16.0 (10-20) 07/04/24 05:55 Glucose 105 mg/dl (70-99(Fasting)) H 07/04/24 05:55 Lactate 1.2 mmol/L (0.4-2.0) 07/02/24 08:30 Calcium 9.6 mg/dl (8.6-10.3) 07/04/24 05:55 Magnesium 1.7 mg/dl (1.7-2.4) 07/04/24 05:55 Total Bilirubin 0.6 mg/dl (0.2-1.0) 07/03/24 08:07 Direct Bilirubin 0.1 mg/dl (0-0.2) 07/03/24 08:07 AST 20 U/L (13-39) 07/03/24 08:07 ALT 11 U/L (7-52) 07/03/24 08:07 Alkaline Phosphatase 49 U/L (34-104) 07/03/24 08:07 Ammonia 16.0 umol/L (18-72) L 07/02/24 08:30 Total Creatine Kinase 258 U/L (26-192) H 07/01/24 13:10 Troponin I High Sens 13.0 pg/ml (0-14) 07/01/24 13:10 Total Protein 6.7 gm/dl (6.0-8.3) 07/03/24 08:07 Albumin 4.1 gm/dl (3.4-5.0) 07/03/24 08:07 Globulin 2.8 gm/dl (2.5-4.0) 07/01/24 13:10 Albumin/Globulin Ratio 1.7 (0.9-2) 07/01/24 13:10 Lipase 5 U/L (11-82) L 07/01/24 13:10 Procalcitonin 0.03 ng/ml (0-0.5) 07/01/24 13:10 TSH 1.368 uIu/ml (0.300-4.500) 07/01/24 13:10 Urine Color Yellow 07/01/24 16:07 Urine Appearance Clear (Clear) 07/01/24 16:07 Urine pH 8.5 (4.5-7.5) H 07/01/24 16:07 Ur Specific [place] 1.022 (1.000-1.030) 07/01/24 16:07 Urine Protein 1+ (Negative) H 07/01/24 16:07 Urine Glucose (UA) Negative (Negative) 07/01/24 16:07 Urine Ketones 1+ (Negative) H 07/01/24 16:07 Urine Blood Negative (Negative) 07/01/24 16:07 Urine Nitrite Negative (Negative) 07/01/24 16:07 Urine Bilirubin Negative (Negative) 07/01/24 16:07 Urine Urobilinogen Negative (Negative) 07/01/24 16:07 Ur Leukocyte Esterase Negative (Negative) 07/01/24 16:07 Urine WBC (Auto) 0-5 /hpf (0-5) 07/01/24 16:07 Urine RBC (Auto) 0-2 /hpf (0-2) 07/01/24 16:07 U Hyaline Cast (Auto) 0-2 /lpf (0-2) 07/01/24 16:07 U Epithel Cells (Auto) 0-2 /hpf (0-2) 07/01/24 16:07 Urine Bacteria (Auto) None Seen (None Seen) 07/01/24 16:07 Urine Test Negative (Negative) 07/02/24 08:10 Urine Opiates Screen Neg (Neg) 07/02/24 08:10 Ur Methadone, Qual Neg (Neg) 07/02/24 08:10 Urine Fentanyl Screen Neg (Neg) 07/02/24 08:10 Urine Barbiturates Neg (Neg) 07/02/24 08:10 Ur Phencyclidine (PCP) Neg (Neg) 07/02/24 08:10 U Amphetamin/Meth Scrn Neg (Neg) 07/02/24 08:10 MDMA (Ecstasy) Screen Neg (Neg) 07/02/24 08:10 U Benzodiazepines Scrn Neg (Neg) 07/02/24 08:10 Ur Cocaine Metabolite Pos (Neg) H 07/02/24 08:10 U Marijuana (THC) Screen Pos (Neg) H 07/02/24 08:10 Adenovirus (PCR) Not Detected (NotDetected) 07/01/24 14:06 B. pertussis DNA (PCR) Not Detected (NotDetected) 07/01/24 14:06 B.parapertussis DNA PCR Not Detected (NotDetected) 07/01/24 14:06 C. pneumoniae DNA (PCR) Not Detected (NotDetected) 07/01/24 14:06 Coronavirus OC43 (PCR) Not Detected (NotDetected) 07/01/24 14:06 Coronavirus HKU1 (PCR) Not Detected (NotDetected) 07/01/24 14:06 Coronavirus 229E (PCR) Not Detected (NotDetected) 07/01/24 14:06 SARS-CoV-2 (PCR) Not Detected (NotDetected) 07/01/24 14:06 Coronavirus NL63 (PCR) Not Detected (NotDetected) 07/01/24 14:06 Human Metapneumovir PCR Not Detected (NotDetected) 07/01/24 14:06 Influenza Type A (PCR) Not Detected (NotDetected) 07/01/24 14:06 Influenza Type B (PCR) Not Detected (NotDetected) 07/01/24 14:06 M. pneumoniae (PCR) Not Detected (NotDetected) 07/01/24 14:06 Parainfluenza 1 (PCR) Not Detected (NotDetected) 07/01/24 14:06 Parainfluenza 2 (PCR) Not Detected (NotDetected) 07/01/24 14:06 Parainfluenza 3 (PCR) Not Detected (NotDetected) 07/01/24 14:06 Parainfluenza 4 (PCR) Not Detected (NotDetected) 07/01/24 14:06 RSV (PCR) Not Detected (NotDetected) 07/01/24 14:06 Entero/Rhino (PCR) Not Detected (NotDetected) 07/01/24 14:[address] 07/01/24 14:08 EXAM: CT Head Without Intravenous Contrast INDICATION: Seizure. TECHNIQUE: Axial computed tomography images of the head/brain without intravenous contrast. Sagittal and/or coronal reformats are provided. Sagittal and coronal reformatted images were created and reviewed. This CT exam was performed using one or more of the following dose reduction techniques: automated exposure control, adjustment of the mA and/or kV according to patient size, and/or use of iterative reconstruction technique. COMPARISON: MRI 10/09/2022 FINDINGS: Limitations: None. Brain and extra-axial spaces: No abnormality noted. No hemorrhage. No significant white matter disease. No edema. No ventriculomegaly. Bones/joints: No acute changes. Soft tissues: No significant abnormality noted. Vasculature: No acute abnormality noted. Sinuses: No layering fluid in the visualized portions of the paranasal sinuses. Mastoid air cells: No mastoid effusion. Orbits: No significant abnormality noted. IMPRESSION: No abnormality noted. ACT 112: Negative or not required by law. Electronically signed by Sonal Seth 07-01-2024 2:52 PM Chest X-Ray 07/01/24 14:15 EXAM: Radiograph of the Chest 1 View INDICATION: Seizure. Chills. TECHNIQUE: Frontal view of the chest. COMPARISON: 10/09/2022 FINDINGS: Lungs and pleural spaces: No consolidation or pulmonary edema. No pleural effusion or pneumothorax. Heart: Shape and configuration within normal limits allowing for technique. Mediastinum: Normal contour. Bones/joints: No fracture, erosion or dislocation. Soft tissues: No abnormality noted. No radiopaque foreign body noted. Upper abdomen: Air in the stomach noted subjacent to the left diaphragm. IMPRESSION: No acute cardiopulmonary disease. ACT 112: Negative or not required by law. Electronically signed by Sonal Seth 07-01-2024 2:54 PM Brain MRI 07/01/24 17:44 MR brain wo con HISTORY: 54 years-old Female seizures acute seizure-like activity COMPARISON: 10/09/2022 TECHNIQUE: Multiplanar multisequence MRI of the brain was obtained without IV contrast FINDINGS: No restricted diffusion to suggest acute or subacute infarct. Unremarkable midline structures. 7 mm pineal gland cyst. Degenerative changes of the cervical spine. No acute intracranial hemorrhage, midline shift, abnormal extra-axial collection, hydrocephalus or intra-axial mass. No pathologic blooming artifact. Mild patchy T2/FLAIR hyperintense foci noted throughout the white matter. Mesial temporal lobes appear normal. No acute seizure focus, yang matter heterotopia or cortical dysplasia. Cerebral venous sinuses and major arterial flow voids appear patent. Skull, orbits and soft tissues are unremarkable. IMPRESSION: 1. No acute intracranial abnormality, specifically there is no acute or subacute infarct. 2. Nonspecific mild patchy T2/FLAIR hyperintense foci throughout the white matte r likely represents early chronic microvascular ischemic disease. ACT 112: Negative or not required by law. The above report was generated using voice recognition software. It may contain grammatical, syntax or spelling errors. Electronically signed by: Angel Hassan M.D. 07/02/2024 7:41 AM Ordered Studies 07/01/24 14:08 CT head/brain wo con Stat 07/01/24 17:44 MR brain wo con Routine Hospital Course (1) Seizure disorder: Seizure disorder Breakthrough seizure Noncompliant/not on any antiseizure medications at home --MRI Brain: No acute intracranial abnormality, specifically there is no acute or subacute infarct. Nonspecific mild patchy T2/FLAIR hyperintense foci throughout the white matter likely represents early chronic microvascular ischemic disease. -Reports " brain fogginess" with Keppra use in the past -- Continue IV Keppra -- Seizure, aspiration precautions --Appreciate neurology input --Consult to avoid illicit drugs -- Needs follow-up with neurology on discharge -- IV Ativan as needed for seizures -- Tolerated Keppra -- Patient advised to to avoid driving until cleared by neurology --Plan to discharge home today Nausea, abdominal discomfort likely 2/2 viral gastroenteritis Resolved Monitor Consider stool studies if recurrence of diarrhea Hypokalemia Hypomagnesemia Likely due to GI losses Monitor and replete electrolytes as needed Hypertension Started low-dose losartan IV hydralazine as needed Monitor and adjust medications as needed Leukocytosis Likely reactive No obvious signs of infection Monitor Resolved Drug abuse Tox screen positive for cocaine, THC Needs counselling Asthma ? Could have underlying COPD Currently no acute issues Advised to follow-up with pulmonology as outpatient for PFTs DVT Px: SCDs CODE STATUS Full code Total Time Total Time Spent Total Time Spent (In Minutes): 56 minutes Discharge Plan Discharge Items Patient Disposition: Home - Self-Care Reason For Visit: SEIZURES Discharge Diagnosis: Seizure disorder Hypertension Drug abuse Activity: Per Instructions section Exercise/Sports: Wait until after follow-up appointment Driving/Machine Use: -- No driving permitted until cleared by your neurologist Non-emergency contact: Primary Care Provider and Neurologist Call non-emergency contact if: you have any medication questions, your symptoms worsen, your pain is concerning for you and you have a fever Follow-up/Referrals: Connor Shukla DO [Physician] - 07/07/24 12:00 pm Diet: Heart Healthy Addtl Attending Provider Instructions: Follow-up with your primary care physician in 1 week Follow-up with your neurologist in 3 to 4 weeks -- Continue Keppra 500mg twice a day as recommended by your neurologist -- No driving permitted until cleared by your neurologist/primary care physician -- Quit using cocaine, marijuana as recommended --Monitor your blood pressure regularly as advised. Discuss with your physician for further adjustment of medications as needed Seek immediate medical attention if your symptoms reoccur or worsen Please take all medications as instructed on discharge list below. Please call if you have any questions or problems. You can reach a [facility] hospitalist on duty at [facility] 24 hours a day by calling [phone] Pending Studies at Discharge: No Stand-Alone Forms: My [facility], Smoking Cessation Medications and DC Order Prescriptions: New albuterol sulfate [Ventolin HFA] 90 mcg/actuation Hfa Aerosol Inhaler 2 puff inhalation Q6H PRN (Reason: shortness of breath or wheezing) Qty: 8.5 1RF levetiracetam [Keppra] 500 mg Tablet 500 mg PO BID Qty: 60 1RF losartan 25 mg Tablet 25 mg PO QAM Qty: 30 1RF Discharge Orders: Discharge Order (Routine); Ordered 07/04/24 Ordered By: Ashok Johnson Admission Data Admit Date/Time: 07/01/24 17:46 Attending Provider: Ashok Johnson Admit Provider: Jacques Biu Primary Care Provider: PCP,NO Other Providers: Jacques Bui; Angel Nuno
--- NOTE | 2024-07-04 18:55 | Electrocardiogram Report ---
Test Reason : Blood Pressure : */* mmHG Vent. Rate : 86 BPM Atrial Rate : 86 BPM P-R Int : 120 ms QRS Dur : 92 ms QT Int : 398 ms P-R-T Axes : 66 66 65 degrees QTcB Int : 476 ms Normal sinus rhythm Normal ECG When compared with ECG of 06-Jan-2023 04:56, Vent. rate has increased by 30 bpm Confirmed by Michael Perez ([id number]) on 07/04/2024 6:55:12 PM Referred By: Confirmed By: Michael Perez
[2024-07-04] MEDS ORDERED: levETIRAcetam 500 MG TAB PO SCH (21:00)
--- NOTE | 2024-07-05 06:30 | Electroencephalogram ---
EEG Procedure Note Date of Service July 03, 2024 Start / End Times Start Time: 616 End Time: 636 Referring Physician Ashok Newberry History A 54 year old female with loss of consciousness. EEG performed for evaluation of epileptiform activity. Home Medication List Medication Instructions Recorded Confirmed Type albuterol sulfate 90 mcg/actuation 2 puff inhalation Q6H PRN 07/04/24 Rx aerosol inhaler (Ventolin HFA) shortness of breath or wheezing #8.5 grams levetiracetam 500 mg tablet 500 mg PO BID #60 tabs 07/04/24 Rx (Keppra) losartan 25 mg tablet 25 mg PO QAM #30 tabs 07/04/24 Rx Inpatient Medication List Discontinued Medications Acetaminophen (Acetaminophen 500 Mg Tab) 1,000 mg PO NOW STA Stop: 07/01/24 14:09 Last Admin: 07/01/24 14:16 Dose: 1,000 mg Documented By: SHENG Sodium Chloride (Nss) 500 mls @ 999 mls/hr IV .Q31M ONE Stop: 07/01/24 14:38 Last Infusion: 07/01/24 15:11 Dose: Infused Documented By: Admin: 07/01/24 14:17 Dose: 999 mls/hr Documented By: SHENG Acetaminophen (Ofirmev) 1,000 mg in 100 mls @ 400 mls/hr IV Q8H PRN PRN Reason: Headache Stop: 07/04/24 17:32 Last Infusion: 07/02/24 05:26 Dose: Infused Documented By: Admin: 07/02/24 04:47 Dose: 400 mls/hr Documented By: Infusion: 07/01/24 17:58 Dose: Infused Documented By: Admin: 07/01/24 17:41 Dose: 400 mls/hr Documented By: VIKASH Sodium Chloride (Nss) 1,000 mls @ 75 mls/hr IV .[id number] BEN Stop: 07/02/24 17:44 Last Infusion: 07/02/24 18:50 Dose: Infused Documented By: Admin: 07/02/24 13:57 Dose: 75 mls/hr Documented By: Infusion: 07/02/24 13:56 Dose: Infused Documented By: Infusion: 07/02/24 11:45 Dose: 75 mls/hr Documented By: Infusion: 07/02/24 07:45 Dose: 75 mls/hr Documented By: Admin: 07/02/24 03:25 Dose: 125 mls/hr Documented By: Infusion: 07/02/24 02:04 Dose: Infused Documented By: Admin: 07/01/24 18:04 Dose: 125 mls/hr Documented By: VIKASH Magnesium Sulfate/Dextrose (Magnesium Sulfate / D5w) 1 gm in 100 mls @ 50 mls/hr IV Q2H BEN Stop: 07/02/24 13:29 Last Infusion: 07/02/24 13:07 Dose: Infused Documented By: RNJacki Admin: 07/02/24 11:03 Dose: 50 mls/hr Documented By: Infusion: 07/02/24 11:03 Dose: Infused Documented By: Admin: 07/02/24 09:31 Dose: 50 mls/hr Documented By: KAMINI Potassium Chloride (K Jimmy / Wtr) 10 meq in 100 mls @ 100 mls/hr IV Q1H BEN Stop: 07/02/24 11:29 Last Infusion: 07/02/24 11:34 Dose: Infused Documented By: RNJacki Admin: 07/02/24 10:34 Dose: 100 mls/hr Documented By: Infusion: 07/02/24 10:32 Dose: Infused Documented By: Admin: 07/02/24 09:31 Dose: 100 mls/hr Documented By: KAMINI Promethazine HCl (Phenergan) 6.25 mg in 50.25 mls @ 201 mls/hr IV NOW ONE Stop: 07/03/24 10:38 Last Infusion: 07/03/24 11:15 Dose: Infused Documented By: Admin: 07/03/24 11:00 Dose: 201 mls/hr Documented By: JACQUELINE Levetiracetam (Levetiracetam 500 Mg/5 Ml Vial) 500 mg IV Q12H [facility] Stop: 07/31/24 19:59 Last Admin: 07/04/24 07:35 Dose: 500 mg Documented By: Admin: 07/03/24 20:35 Dose: 500 mg Documented By: Admin: 07/03/24 08:07 Dose: 500 mg Documented By: Admin: 07/02/24 20:48 Dose: 500 mg Documented By: Admin: 07/02/24 08:09 Dose: 500 mg Documented By: Admin: 07/01/24 20:40 Dose: 500 mg Documented By: NARDA Losartan Potassium (Losartan Potassium 25 Mg Tab) 25 mg PO QAM [facility] Stop: 08/02/24 08:59 Last Admin: 07/04/24 07:34 Dose: 25 mg Documented By: Admin: 07/03/24 10:14 Dose: 25 mg Documented By: JACQUELINE Magnesium Chloride (Magnesium Chloride W/Calcium 64mg Delayed Rel Tab) 64 mg PO BID BEN Stop: 08/02/24 08:59 Last Admin: 07/03/24 08:07 Dose: 64 mg Documented By: SS Magnesium Chloride (Magnesium Chloride W/Calcium 64mg Delayed Rel Tab) 64 mg PO BID [facility] Stop: 08/02/24 20:59 Last Admin: 07/04/24 07:34 Dose: 64 mg Documented By: Admin: 07/03/24 20:36 Dose: 64 mg Documented By: DYLAN Ondansetron HCl (Ondansetron Inj 2 Mg/Ml 2 Ml Vial) 4 mg IV Q4H PRN PRN Reason: Nausea Stop: 07/31/24 17:32 Last Admin: 07/03/24 08:07 Dose: 4 mg Documented By: Admin: 07/02/24 16:56 Dose: 4 mg Documented By: Admin: 07/01/24 17:42 Dose: 4 mg Documented By: VIKASH Potassium Chloride (Potassium Chloride Crtab 20 Meq Tabcr) 40 meq PO ONE ONE Stop: 07/02/24 07:54 Last Admin: 07/02/24 08:09 Dose: 40 meq Documented By: KAMINI Potassium Chloride (Potassium Chloride Crtab 20 Meq Tabcr) 20 meq PO BID [facility] Stop: 08/01/24 20:59 Last Admin: 07/03/24 08:07 Dose: 20 meq Documented By: Admin: 07/02/24 20:54 Dose: 20 meq Documented By: DYLAN Potassium Chloride (Potassium Chloride Crtab 20 Meq Tabcr) 20 meq PO TID [facility] Stop: 08/02/24 08:59 Last Admin: 07/03/24 14:14 Dose: Not Given Documented By: JACQUELINE Potassium Chloride (Potassium Chloride Crtab 20 Meq Tabcr) 20 meq PO BID [facility] Stop: 08/02/24 20:59 Last Admin: 07/04/24 07:34 Dose: 20 meq Documented By: Admin: 07/03/24 20:35 Dose: 20 meq Documented By: MPC Description This is a 21 electrode EEG with a single channel dedicated to limited EKG. The electrodes were placed in accordance with the International 10-20 system. REPORT: At the onset of the EEG, the patient is awake. The background activity consist of 9 Hz, persistent, posteriorly dominant, moderate amplitude, symmetric and rhythmic activity that is reactive to eye opening. Anteriorly, it consist of a mixture of low voltage indeterminate activity and 15-25 Hz, persistent, low amplitude, symmetric and rhythmic activity. Stepwise intermittent photic stimulation (1-21 Hz) does not induce any abnormalities. Drowsiness is characterized by low amplitude mixed frequency activity, roving eye movements, and decreased eye blinking and muscle artifact. Interpretation IMPRESSION: This is a normal awake and drowsy EEG. There is no evidence of focal slowing or epileptiform activity.
[2024-07-06 14:18] LABS: Cocaine, Urine 1280 ng/mL (<100); Marijuana Quant, GCMS Urine 497 ng/mL (<5)
== END 2024-07-04 13:24 | disposition home or self-care (01) | DRG 101 ==
LOC: ED 12:56 → 2E 17:46 → SUATTDRO 17:46 → 2E 23:05